=== PATIENT | male | born 1960 | race African-American/Black ===

== ENCOUNTER 2017-02-23 12:03 | Emergency (ER) | payer MEDICARE ==
[~2017-02-23] VITALS: Ht 172.7 cm; Wt 97.1 kg
[~2017-02-23 12:03] MED LIST: ALLO100T PO; AMLO5TAB4 PO; ASPI81TA2 PO; ATOR10TA60 PO; CARV25TA PO; GABA600T2 PO; MYCO250C PO; MYCO500T PO; OMEP40CA5 PO; PROPRANOLOL; TACR5CAP4 PO
[2017-02-23 12:14] VITALS: BP 165/84
[2017-02-23] MEDS ORDERED: METR500T4 PO (12:32)
[2017-02-23] MEDS ORDERED: HYDR-971 PO (12:32)
--- NOTE | 2017-02-23 12:35 | PHYS DOC ---
General Chief Complaint: DIARRHEA Stated Complaint: WANTS TO BE TESTED FOR C DIFF Time Seen by MD: 12:06 Source: patient Exam Limitations: no limitations Problems: History of Present Illness Initial Comments Pt is 56/M to ED requesting C diff test. Pt has h/o C diff in past, states he recently finished levaquin rx and now has diarrhea. States about a week loose watery stools no blood noted, +night chills /sweats, sx are identical to prior C diff. Pt states he wants dx/tx before sx get as severe as his prior infection. He feels he's hydrating adequately, denies travel/bad food exposure/known sick contacts. Timing/Duration: 1 week, constant Severity: mild Modifying Factors: improves with other Associated Symptoms: other Allergies: Coded Allergies: No Known Drug Allergies (Unverified , 04/14/15) Past Medical History Medical History: other (CAD, constipation, DM, HLP, HTN, immunosuppression, renal insufficiency) Surgical History: coronary bypass surgery, other Social History Smoker: non-smoker Alcohol: none Drugs: none Review of Systems Constitutional: see HPI Respiratory: denies cough, denies shortness of breath Cardiovascular: denies chest pain, denies palpitations Gastrointestinal: see HPI Genitourinary: denies dysuria, denies frequency Psychiatric/Neurological: denies headache, denies paresthesia Physical Exam General Appearance: WD/WN, no apparent distress Ear, Nose, Throat: normal ENT inspection Neck: non-tender, supple Respiratory: normal breath sounds, no respiratory distress Gastrointestinal: normal bowel sounds, non tender, soft Back: normal inspection, no CVA tenderness Extremities: non-tender, normal inspection 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 Continue current meds. Rx: metronidazole, norco 5mg #10 Take meds with food. OTC probiotics or cultured yogurt daily. Follow up with your doctor Wednesday 02/28. Return to ED with new or changing symptoms. DEV DELACRUZ DO Feb 23, 2017 12:35
[2017-02-23] MEDS ORDERED: METRONIDAZOLE 500 MG TABLET PO ONE (13:00)
== END 2017-02-23 12:50 | disposition home or self-care (01) ==
LOC: ER 12:03
DX: K52.1 Toxic gastroenteritis and colitis (principal); T36.8X5A Adverse effect of other systemic antibiotics, initial encounter; I25.10 Atherosclerotic heart disease of native coronary artery without angina pectoris; I10 Essential (primary) hypertension; E11.9 Type 2 diabetes mellitus without complications; E78.5 Hyperlipidemia, unspecified; Z95.1 Presence of aortocoronary bypass graft; Y92.89 Other specified places as the place of occurrence of the external cause
CPT/HCPCS: 99283

== ENCOUNTER 2017-06-22 17:10 | Emergency (ER) | payer MEDICARE ==
[~2017-06-22] VITALS: Ht 172.7 cm; Wt 93.0 kg
[~2017-06-22 17:10] MED LIST changes: +ASPI-630 PO; -ASPI81TA2 PO; +HYDR-971 PO; +METR500T8 PO
[2017-06-22] MEDS ORDERED: IV NORMAL SALINE 1,000ML 1,000 ML IV SCH (17:35)
[2017-06-22] MEDS ORDERED: 0.9 % SODIUM CHLORIDE 10 ML DISP.SYRIN. IV PRN (17:45)
--- NOTE | 2017-06-22 17:54 | EKG ---
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
--- NOTE | 2017-06-22 18:02 | PHYS DOC ---
Past History Past Medical History: CAD, Diabetes, High Cholesterol, Heart Disease, Hypertension, Immunosuppression, Other Past Surgical History: Coronary Bypass Surgery, Other Additional Past Surgical Histo: renal transplant, pancreatic transplant Smoking: Non-smoker Alcohol Use: None Drug Use: None Adult General Chief Complaint Chief Complaint: NAUSEA/VOMITING/DIARRHEA HPI HPI Impression is a pleasant 57-year-old male with a history of renal and pancreatic transplant 7 years ago at [facility]. For last 2 weeks he's had this nausea subjective fevers and chills body aches and a rash he feels that he developed on his right lower thigh and leg. 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 He normally gets all his care at . Although he's been febrile he is had no documented fever. Patient has had nausea and nonbilious nonbloody diarrhea nonbloody nonmucoid with no recent antibiotics. He's had no recent relatively country. He denies any chest pain, shortness of breath, headache, focal neurologic deficit or other symptoms. He feels like he has the flu. Review of Systems Review of Systems Constitutional: He complains of generalized fevers and chills. Eyes: Denies change in visual acuity, redness, or eye pain [] HENT: Denies nasal congestion or sore throat [] Respiratory: Denies cough or shortness of breath [] Cardiovascular: No additional information not addressed in HPI [] GI: Denies abdominal pain, he does complain of nausea vomiting and diarrhea nonbloody is not on bilious : Denies dysuria or hematuria [] Musculoskeletal: Denies back pain or joint pain [] Integument: Complains of a skin rash on his right thigh and leg. It was very painful and sensitive beforehand. Neurologic: Denies headache, focal weakness or sensory changes [] Endocrine: Denies polyuria or polydipsia [] Current Medications Current Medications Current Medications Medications (Trade) Dose Ordered Sig/Karl Start Time Stop Time Status Last Admin Dose Admin Sodium Chloride (Normal Saline Flush) 10 ml QSHIFT PRN 06/22/17 17:45 Allergies Allergies Allergies Coded Allergies Type Severity Reaction Last Updated Verified No Known Drug Allergies 06/22/17 No Physical Exam Physical Exam Vital signs recorded on the chart demonstrated hypertension without fever, hypoxia, tachypnea or tachycardia. Constitutional: Well developed, well nourished, no acute distress, non-toxic appearance. [] HENT: Normocephalic, atraumatic, bilateral external ears normal, oropharynx moist, no oral exudates, nose normal. [] Eyes: PERRLA, EOMI, conjunctiva normal, no discharge. [] Neck: Normal range of motion, no tenderness, supple, no stridor. [] Cardiovascular:Heart rate regular rhythm, no murmur [] Lungs & Thorax: Bilateral breath sounds clear to auscultation [] Abdomen: Bowel sounds normal, soft, no tenderness, no masses, no pulsatile masses. [] Skin: Warm, dry, slight well-healed rash on his right thigh with no obvious signs of abscess or cellulitis. Back: No tenderness, no CVA tenderness. [] Extremities: No tenderness, no cyanosis, no clubbing, ROM intact, no edema. [] Neurologic: Alert and oriented X 3, normal motor function, normal sensory function, no focal deficits noted. [] Psychologic: Affect normal, judgement normal, mood normal. [] Current Patient Data Vital Signs Vital Signs Date Time Temp Pulse Resp B/P (MAP) Pulse Ox O2 Delivery O2 Flow Rate FiO2 06/22/17 17:42 98.2 73 18 98 Room Air EKG EKG [] Radiology/Procedures Radiology/Procedures [] Course & Med Decision Making Course & Med Decision Making Pertinent Labs and Imaging studies reviewed. (See chart for details) reviewed nursing notes, vital signs been recorded and patient's complaint at this point patient is immunocompromised and will require further workup and thorough evaluation by the oncoming physician we discussed the patient's complaints and plan for action at this point in time patient will likely need transfer to necessary if his has taken any injury. [] Dragon Disclaimer Dragon Disclaimer This chart was dictated in whole or in part using Voice Recognition software in a busy, high-work load, and often noisy Emergency Department environment. It may contain unintended and wholly unrecognized errors or omissions. Departure Departure: Referrals: SATURNINO MAXWELL (PCP) THUAN DENG MD Jun 22, 2017 18:02
[2017-06-22 18:45] LABS: BASO # 0.1 x10^3/uL (0.0-0.2); BASO % 1 % (0-3); EOS # 0.4 x10^3/uL (0.0-0.7); EOS % 7 % (0-3); HEMATOCRIT 43.7 % (39.0-53.0); HEMOGLOBIN 13.9 g/dL (13.0-17.5); LYMPH # 1.5 x10^3/uL (1.0-4.8); LYMPH % 27 % (24-48); MEAN CORPUSCULAR HEMOGLOBIN 25 pg (25-35); MEAN CORPUSCULAR HGB CONC 32 g/dL (31-37); MEAN CORPUSCULAR VOLUME 79 fL (79-100); MONO # 0.8 x10^3/uL (0.0-1.1); MONO % 15 % (0-9); NEUT # 2.7 x10^3uL (1.8-7.7); NEUT % 49 % (31-73); PLATELET COUNT 193 x10^3/uL (140-400); RED BLOOD COUNT 5.52 x10^6/uL (4.30-5.70); RED CELL DISTRIBUTION WIDTH 18.7 % (11.5-14.5); WHITE BLOOD COUNT 5.4 x10^3/uL (4.0-11.0)
[2017-06-22 19:02] LABS: ALBUMIN 4.2 g/dL (3.4-5.0); ALBUMIN/GLOBULIN RATIO 1.1 (1.0-1.7); CALCIUM 8.8 mg/dL (8.5-10.1); CREATININE 1.2 mg/dL (0.7-1.3); MAGNESIUM 1.7 mg/dL (1.8-2.4); TOTAL BILIRUBIN 0.6 mg/dL (0.2-1.0); TOTAL PROTEIN 7.9 g/dL (6.4-8.2)
[2017-06-22 19:03] LABS: POTASSIUM 4.5 mmol/L (3.5-5.1)
[2017-06-22] MEDS ORDERED: ONDANSETRON PF 4 MG/2 ML VIAL. IV ONE (19:15)
[2017-06-22 19:33] LABS: BACTERIA,URINE 0 /HPF (0-FEW); BILIRUBIN,URINE NEG (NEG); CLARITY,URINE CLEAR; COLOR,URINE YELLOW; GLUCOSE,URINE NEG (NEG); NITRITE,URINE NEG (NEG); RBC,URINE OCC /HPF (0-2); SQUAMOUS EPITHELIAL CELL,UR OCC /LPF; UROBILINOGEN,URINE 0.2 mg/dL (0.2 mg/dL)
[2017-06-22] MEDS ORDERED: IV NORMAL SALINE 50ML 50 ML ONE (19:35)
[2017-06-22] MEDS ORDERED: cefTRIAXone SODIUM 1 GM VIAL IV ONE (19:35)
[2017-06-22] MEDS ORDERED: AMOX500C PO (19:57)
--- NOTE | 2017-06-22 19:57 | PHYS DOC ---
Departure Departure: Impression: Primary Impression: Upper respiratory infection Disposition: HOME, SELF-CARE Condition: IMPROVED Referrals: SATURNINO MAXWELL (PCP) Patient Instructions: Viral Syndrome Additional Instructions: Your evaluated today in the ER for what appears to be a viral syndrome. No serious cause of your symptoms of been discovered. He'll be sent home with a prescription for antibiotics. Please complete all your antibiotics and follow up with your family doctor or transplant physician this week. Your creatinine today in the ER was 1.2. This appears to be where her baseline creatinine has been. Of note, your CPK level was elevated today in the ER. It appears to only speak slightly elevated. This might be something he wants to discuss with your doctor. This is most likely related to a side effect from one of your medications however it would be best that your doctor be made aware of this next time he see them. Scripts Amoxicillin (AMOXICILLIN) 500 Mg Capsule 1 CAP PO TID, #30 CAP Prov: SARA NAVA MD 06/22/17 Assessment Status/Problems: Doing well Additional comments: 57-year-old gentleman with multiple medical problems who is status post transplant and is followed by [facility] transplant team who presents to the ER today with complaint of feeling like he's had the flu for over a week now. Patient reports that whenever he has he symptoms and they do not resolve in the room he usually comes to the doctor the ER he get a shot of antibiotics he gets home with antibiotics and usually feels better after several days. Patient's ER workup so far has been unremarkable. Patient's labs were within normal limits for the patient. Patient's sodium is slightly low at 128 however patient reports that he is always hyponatremic. Patient's white count is normal. Patient 's infectious evaluation the ER is been unremarkable. Patient's right thigh reveals no evidence of acute cellulitis. Patient's creatinine is at baseline for patient. Given the patient's history of a transplant I think he'll be reasonable to go ahead given his symptoms to give him a dose of Rocephin IV and sent him home with amoxicillin and have him follow-up with his primary care physician/transplant physician this week. Patient feels well. Plan is been discussed with the patient he feels comfortable with the plan to be discharged home. SARA NAVA MD Jun 22, 2017 19:57
[2017-06-22 20:04] VITALS: BP 134/79
[2017-06-22 21:31] LABS: ANISOCYTOSIS SLIGHT; BURR CELLS FEW; OVALOCYTES FEW; PLT ESTIMATE ADEQUATE (ADEQUATE)
--- NOTE | 2017-06-23 07:38 | RAD ---
Chest radiograph 06/22/2017 at 1741 hours Indication: Fever and rash Comparison: Chest radiograph 11/09/2015 Technique: PA and lateral views of the chest are provided. Findings: Median sternotomy changes are present. Cardiomediastinal silhouette is similar in appearance. Trace left pleural effusion. No pulmonary vascular congestion or pneumothorax. Minimal left basilar subsegmental atelectasis. Impression: Trace left pleural effusion with left basilar subsegmental atelectasis.
== END 2017-06-22 20:12 | disposition home or self-care (01) ==
LOC: ER 17:10
DX: J06.9 Acute upper respiratory infection, unspecified (principal); R21 Rash and other nonspecific skin eruption; I25.810 Atherosclerosis of coronary artery bypass graft(s) without angina pectoris; I11.9 Hypertensive heart disease without heart failure; E11.9 Type 2 diabetes mellitus without complications; E78.00 Pure hypercholesterolemia, unspecified
CPT/HCPCS: 36415; 71020; 80053; 81001; 82553; 83605; 83735; 84443; 84484; 85025; 87040; 87086; 93005; 96361; 96365; 96375; 99285; J0696; J2405; J7030

== ENCOUNTER 2017-09-02 17:34 | Observation (INO) | payer MEDICARE ==
[~2017-09-02] VITALS: Ht 172.7 cm; Wt 92.6 kg
[~2017-09-02 17:34] MED LIST changes: +AMOX500C PO
[2017-09-02] MEDS ORDERED: IV NORMAL SALINE 1,000ML 1,000 ML IV SCH (18:23)
[2017-09-02] MEDS ORDERED: 0.9 % SODIUM CHLORIDE 10 ML DISP.SYRIN. IV PRN (18:30)
[2017-09-02] MEDS ORDERED: ONDANSETRON PF 4 MG/2 ML VIAL. IV ONE (18:45)
--- NOTE | 2017-09-02 18:50 | PHYS DOC ---
Past History Past Medical History: Diabetes, Hypertension Past Surgical History: Other Additional Past Surgical Histo: renal transplant, pancreatic transplant Smoking: Non-smoker Alcohol Use: None Drug Use: None Adult General Chief Complaint Chief Complaint: NAUSEA/VOMITING/DIARRHEA [facility] HPI Patient is a pleasant 57-year-old male with a history of heart disease, end- stage renal disease requiring transplant, hyperlipidemia, pancreatitis, diabetes , who presents with 4 days of nausea vomiting diarrhea. And because of his renal transplant he is concerned his renal transplant is failing because he is not minimally urinate for last 8 hours. Patient has some crampy abdominal pain that began 4 days ago ascribes dull achy worse with vomiting with nonbilious nonbloody emesis. He generally feels episodes a day and he cannot keep any fluids down. He has urine output although has decreased significantly. Patient has had diarrhea a few loose stools today with no blood no mucus. He admits no sick contacts. Patient admits to no fevers, cough but has had a runny nose without your pain or drainage or other URI symptoms. Patient admits he's had no pain with urination, hematuria or other symptoms. Patient denies any back pain lightheaded dizziness or significant chest pain. Review of Systems Review of Systems Constitutional: Denies fever or chills [] Eyes: Denies change in visual acuity, redness, or eye pain [] HENT: He has had some nasal congestion without sore throat. Respiratory: Denies cough or shortness of breath [] Cardiovascular: No additional information not addressed in HPI [] GI: Patient is having diffuse crampy abdominal pain not specifically over the kidney transplant site but nausea with vomiting diarrhea without blood.[] : Denies dysuria or hematuria he has had slight decreased urinary output. Musculoskeletal: Denies back pain or joint pain [] Integument: Denies rash or skin lesions [] Neurologic: Denies headache, focal weakness or sensory changes [] Endocrine: Denies polyuria or polydipsia [] Current Medications Current Medications Current Medications Medications (Trade) Dose Ordered Sig/Karl Start Time Stop Time Status Last Admin Dose Admin Ondansetron HCl (Zofran) 4 mg 1X ONCE 09/02/17 18:45 09/02/17 18:46 Sodium Chloride (Normal Saline Flush) 10 ml QSHIFT PRN 09/02/17 18:30 Allergies Allergies Allergies Coded Allergies Type Severity Reaction Last Updated Verified No Known Drug Allergies 06/22/17 No Physical Exam Physical Exam Vital signs recorded on chart within normal limits. Constitutional: Well developed, well nourished, no acute distress, non-toxic appearance patient's clothes are somewhat soiled with foodstuffs on his abdomen. [] HENT: Normocephalic, atraumatic, bilateral external ears normal, oropharynx moist, no oral exudates, nose normal. [] Eyes: PERRLA, EOMI, conjunctiva normal, no discharge. [] Neck: Normal range of motion, no tenderness, supple, no stridor. [] Cardiovascular:Heart rate regular rhythm, no murmur [] Lungs & Thorax: Bilateral breath sounds clear to auscultation [] Abdomen: Patient has some increased hyperactive bowel sounds mild abdominal distention but no focal tenderness to palpation over his kidney. He has no Guajardo's or McBurney's point tenderness to palpation no guarding rebound or organomegaly.. [] Skin: Warm, dry, no erythema, no rash. [] Back: No tenderness, no CVA tenderness. [] Extremities: No tenderness, no cyanosis, no clubbing, ROM intact, no edema. [] Neurologic: Alert and oriented X 3, normal motor function, normal sensory function, no focal deficits noted. [] Psychologic: Affect normal, judgement normal, mood normal. [] Current Patient Data Vital Signs Vital Signs Date Time Temp Pulse Resp B/P (MAP) Pulse Ox O2 Delivery O2 Flow Rate FiO2 09/02/17 17:49 97.6 79 18 97 Room Air EKG EKG [] Radiology/Procedures Radiology/Procedures [] [address] [place] [id number] IMAGING REPORT Signed PATIENT: DANNA ZHONG ACCOUNT: [id number] : 1960 LOCATION: ER AGE: 57 SEX: M EXAM STATUS: REG ER ORD. PHYSICIAN: THUAN DENG MD REASON: ab pain with n/v PROCEDURE: CT ABDOMEN PELVIS WO CONTRAST CT scan of the abdomen and pelvis without contrast 09/02/2017 CLINICAL HISTORY: Abdominal pain with nausea and vomiting for one week. TECHNIQUE: Unenhanced, contiguous, 3 mm axial sections were obtained through the abdomen and pelvis after the oral administration of contrast only. One or more of the following individualized dose reduction techniques were utilized for this study: 1. Automated exposure control. 2. Adjustment of the mA and/or kV according to patient size. 3. Use of iterative reconstruction technique. FINDINGS: Comparison study is dated 09/04/2014. Images through the lung bases demonstrate minimal dependent subsegmental atelectasis bilaterally. The liver, spleen, and adrenal glands are within normal limits. Atrophy of both kidneys is seen. Atrophy of the pancreas is noted. No acute focal abnormality is seen. Moderate atherosclerotic calcification of the abdominal aorta is seen. The abdominal aorta tapers normally. The gallbladder slightly contracted. No free fluid or free air is seen within the abdomen. Postsurgical changes are seen throughout the bowel. There is no evidence of bowel obstruction. A renal transplant is seen within the right lower quadrant of the abdomen/pelvis. No focal abnormality is seen. Images through the pelvis demonstrate the urinary bladder distended with urine. No free fluid is seen. Minimal S-shaped curvature of the thoracolumbar spine is seen. IMPRESSION: No acute abnormality is seen. Electronically signed by: Damaso Tarango MD (09/02/2017 8:22 PM) [facility] DICTATED AND SIGNED BY: DAMASO TARANGO MD DATE: 09/02/172014 CC: THUAN DENG MD; SATURNINO MAXWELL Course & Med Decision Making Course & Med Decision Making Pertinent Labs and Imaging studies reviewed. (See chart for details) he presents with abdominal pain, nausea vomiting diarrhea that began 4 days prior to arrival. He is mainly concerned that his kidney function may be decreasing with his inability tolerate food and fluids. On initial exam his abdomen seems soft specifically there is no tenderness over the implant site of the kidney. Patient wanted a CAT scan done without contrast as well as fluids antiemetics and pain medications if necessary. Time is now 8:00 patient is resting quietly although he still in some discomfort. Laboratory work is still pending at this time what is return CBC is normal\ Time is now 8:[address] report abdomen pelvis turned with no signs of intra-abdominal catastrophe, small bowel obstruction or renal failure as her is no inflammation around the implant site. This patient still feels uncomfortable with some mild nausea I'm is now 9 PM patient is feeling comfortable restarting some mild abdominal pain with nausea although he's not had any vomiting here diarrhea patient been invited to stay. His BUN/creatinine are normal. His creatinine is 1.1. Given that fact he is not having acute rejection of his renal transplant I offered admission to them for fluid management and pain medications and he said he would prefer that as opposed being at home by himself. Video Production Engineer note: Dr. Aristeo HOOKER Video Production Engineer called at of the service internal medicine service contracts attorney 9:01 PM Consult called back at 9:01 PM Discussed the case I presented and they agreed with admission. Time of acceptance 9:01 PM []Impression, abdominal pain unclear etiology, nausea, vomiting, diarrhea mild hyponatremia Dragon Disclaimer Dragon Disclaimer This chart was dictated in whole or in part using Voice Recognition software in a busy, high-work load, and often noisy Emergency Department environment. It may contain unintended and wholly unrecognized errors or omissions. Departure Departure: Impression: Primary Impression: Nausea and vomiting Additional Impressions: Diarrhea Abdominal pain Hyponatremia Disposition: ADMITTED INPATIENT Admitting Physician: Ravi Henderson Condition: GUARDED Referrals: SATURNINO MAXWELL (PCP) Problem Qualifiers THUAN DENG MD Sep 02, 2017 18:50
[2017-09-02 20:13] LABS: BASO # 0.1 x10^3/uL (0.0-0.2); BASO % 1 % (0-3); EOS # 0.6 x10^3/uL (0.0-0.7); EOS % 10 % (0-3); HEMATOCRIT 41.5 % (39.0-53.0); HEMOGLOBIN 13.7 g/dL (13.0-17.5); LYMPH # 1.1 x10^3/uL (1.0-4.8); LYMPH % 19 % (24-48); MEAN CORPUSCULAR HEMOGLOBIN 26 pg (25-35); MEAN CORPUSCULAR HGB CONC 33 g/dL (31-37); MEAN CORPUSCULAR VOLUME 80 fL (79-100); MONO # 0.9 x10^3/uL (0.0-1.1); MONO % 15 % (0-9); NEUT # 3.3 x10^3uL (1.8-7.7); NEUT % 56 % (31-73); PLATELET COUNT 180 x10^3/uL (140-400); RED BLOOD COUNT 5.22 x10^6/uL (4.30-5.70); RED CELL DISTRIBUTION WIDTH 16.9 % (11.5-14.5); WHITE BLOOD COUNT 5.9 x10^3/uL (4.0-11.0)
--- NOTE | 2017-09-02 20:25 | RAD ---
CT scan of the abdomen and pelvis without contrast 09/02/2017 CLINICAL HISTORY: Abdominal pain with nausea and vomiting for one week. TECHNIQUE: Unenhanced, contiguous, 3 mm axial sections were obtained through the abdomen and pelvis after the oral administration of contrast only. One or more of the following individualized dose reduction techniques were utilized for this study: 1. Automated exposure control. 2. Adjustment of the mA and/or kV according to patient size. 3. Use of iterative reconstruction technique. FINDINGS: Comparison study is dated 09/04/2014. Images through the lung bases demonstrate minimal dependent subsegmental atelectasis bilaterally. The liver, spleen, and adrenal glands are within normal limits. Atrophy of both kidneys is seen. Atrophy of the pancreas is noted. No acute focal abnormality is seen. Moderate atherosclerotic calcification of the abdominal aorta is seen. The abdominal aorta tapers normally. The gallbladder slightly contracted. No free fluid or free air is seen within the abdomen. Postsurgical changes are seen throughout the bowel. There is no evidence of bowel obstruction. A renal transplant is seen within the right lower quadrant of the abdomen/pelvis. No focal abnormality is seen. Images through the pelvis demonstrate the urinary bladder distended with urine. No free fluid is seen. Minimal S-shaped curvature of the thoracolumbar spine is seen. IMPRESSION: No acute abnormality is seen. Electronically signed by: Damaso Tarango MD (09/02/2017 8:22 PM) [facility]
[2017-09-02 20:47] LABS: ALBUMIN 3.8 g/dL (3.4-5.0); ALBUMIN/GLOBULIN RATIO 1.1 (1.0-1.7); CALCIUM 8.7 mg/dL (8.5-10.1); CREATININE 1.1 mg/dL (0.7-1.3); GFR 82.9; POTASSIUM 4.2 mmol/L (3.5-5.1); TOTAL PROTEIN 7.2 g/dL (6.4-8.2)
[2017-09-02 21:18] LABS: BILIRUBIN,URINE NEG (NEG); CLARITY,URINE HAZY; COLOR,URINE YELLOW; GLUCOSE,URINE NEG (NEG)
[2017-09-02 21:19] LABS: BACTERIA,URINE 0 /HPF (0-FEW); NITRITE,URINE NEG (NEG); SQUAMOUS EPITHELIAL CELL,UR FEW /LPF; UROBILINOGEN,URINE 0.2 mg/dL (0.2 mg/dL)
[2017-09-02 21:20] LABS: SPERM,URINE PRESENT /HPF
[2017-09-02] MEDS ORDERED: ONDANSETRON PF 4 MG/2 ML VIAL. IV PRN (21:30)
[2017-09-02] MEDS ORDERED: ACETAMINOPHEN 325 MG TABLET PO PRN (21:30)
[2017-09-02] MEDS: MORPHINE SULFATE 4 MG/ML DISP.SYRIN. IV PRN ×2 (21:31→23:55)
[2017-09-02 21:47] VITALS: BP 145/82
[2017-09-02] MEDS ORDERED: PREG75CA PO (22:17)
[2017-09-02] MEDS ORDERED: CLON0.5T3 PO (22:17)
[2017-09-02] MEDS ORDERED: TRAZ50TA15 PO (22:19)
[2017-09-02] MEDS ORDERED: VITA100C8 PO (22:20)
[2017-09-02] MEDS: IV NORMAL SALINE 1,000ML 1,000 ML IV SCH (23:09)
[2017-09-03] MEDS: IV NORMAL SALINE 1,000ML 1,000 ML IV SCH (06:15)
[2017-09-03 06:31] VITALS: BP 132/79
[2017-09-03] MEDS: MORPHINE SULFATE 4 MG/ML DISP.SYRIN. IV PRN ×2 (08:04→11:40)
[2017-09-03] MEDS ORDERED: TACROLIMUS 0.5 MG CAPSULE PO SCH (09:00)
[2017-09-03 10:52] VITALS: BP 124/77
[2017-09-03] MEDS ORDERED: TACROLIMUS 0.5 MG CAPSULE PO ONE (11:00)
[2017-09-03] MEDS ORDERED: MYCOPHENOLATE MOFETIL 500 MG TABLET. PO SCH (11:00)
--- NOTE | 2017-09-03 17:25 | SSS ---
ADMIT DATE: 09/03/2017 HISTORY OF PRESENT ILLNESS: This is a 57-year-old -[place] male patient who presented with 4 days of nausea, vomiting and diarrhea. The patient is known to have type 1 diabetes with end-stage renal failure, status post simultaneous kidney and pancreatic transplant. He was concerned that his transplant is failing as he had been not making any urine for the last 8 hours and he also complained of some crampy abdominal pain that began 4 days ago, described as dull, achy, worse with vomiting with nonbilious, nonbloody emesis. He apparently had multiple episodes of nausea, vomiting and diarrhea. He cannot keep any fluid down. His urine output has decreased significantly. His stool showed no blood or mucus. He admits no sick contacts. The patient admits no fever, cough, but has a runny nose without any pain or drainage and no other upper respiratory tract symptoms. Denied any dysuria, frequency or hematuria. He did complain of back pain, lightheadedness and dizziness. He was evaluated in the Emergency Room, was found to be mildly hyponatremic. However, his lab work is remarkably within acceptable range. He was treated with IV fluid and has been asymptomatic since this morning. He was able to tolerate his food; he has had no further episodes of nausea, vomiting, no diarrhea. He did have some mild crampy abdominal pain and when I saw him, he basically wanted to go home as he is back to his normal state of health. PAST MEDICAL HISTORY: Significant for type 1 diabetes mellitus for 30 years. He has end-stage renal failure and was on hemodialysis through a right arm arteriovenous fistula for 1 year; hypertension, coronary artery disease status post coronary artery bypass graft surgery on 04/03/2013. 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 He has diabetic neuropathy. PAST SURGICAL HISTORY: Significant for arteriovenous fistula creation in his left arm, coronary artery bypass graft, simultaneous kidney and pancreatic transplant done in 07/2011. ALLERGIES: He has no known drug allergies. MEDICATIONS: He is currently on the following medications: Allopurinol 150 mg once a day, aspirin 81 mg once a day, carvedilol 25 mg twice a day, clonazepam 0.25 mg twice a day, hydrocodone/APAP 5/325 one tablet every 6 hours, mycophenolate for CellCept 500 mg p.o. b.i.d., omeprazole 40 mg twice a day, pregabalin 75 mg daily, tacrolimus 1.5 mg twice a day, trazodone 50 mg at bedtime and vitamin E 100 units p.o. daily. FAMILY HISTORY: He has 2 brothers and 2 sisters. His father at the age of 89 because of colon cancer. Mother at the age of 84 because of esophageal cancer. SOCIAL HISTORY: He is single, never , has no children. He is an ex-smoker, quit in 2012. He does not drink alcohol or use any recreational drugs. REVIEW OF SYSTEMS: The patient is blind in his left eye. Denied any earache, tinnitus or sensorineural deafness. Denied any nosebleeds, stuffy nose or postnasal drip. Denied any sore throat, sore tongue, toothache, hoarseness of voice or difficulty swallowing. Did complain of recurrent bouts of nausea, vomiting, but no hematemesis. He has also diarrhea, but no hematochezia or melena. Denied any dysuria, frequency or hematuria. Denied any chest pain, shortness of breath, orthopnea, or paroxysmal nocturnal dyspnea. PHYSICAL EXAMINATION: GENERAL: On arrival, he looked well and was clearly in no apparent respiratory distress. VITAL SIGNS: His heart rate was 79, blood pressure 138/76, temperature was 97.6, respiratory rate was 18, and oxygen saturation was 97%. HEAD, EYES, EARS, NOSE AND THROAT: Showed normocephalic, atraumatic. NECK: Supple. HEART: Showed normal first and second heart sounds with no gallop, rub or murmur. CHEST: Clear to auscultation. No crepitation or rhonchi. ABDOMEN: Distended, soft, nontender. No guarding or rigidity. No organomegaly. All hernial orifices are intact. Bowel sounds normal. NEUROLOGIC: He was blind in his left eye; otherwise, all cranial nerves are intact. EXTREMITIES: He moves extremities without difficulty. He ambulates without assistance or assistive devices. LABORATORY DATA: Showed a white cell count of 5900, hemoglobin 13.7, hematocrit 41.5, MCV 80 and platelet count of 180,000 with normal manual differential. His chemistry showed a serum sodium of 126, potassium 4.2, chloride 93, bicarbonate 22, anion gap of 11, BUN 16, creatinine 1.1, estimated GFR was 83 mL per minute, his glucose was 85, calcium was 8.7. Total bilirubin, AST, ALT, alkaline phosphatase were normal. CK was high at 461; however, his troponin was less than 0.017. His total protein was 7.2, albumin 3.8 and lipase was 128. Urinalysis was essentially unremarkable. The urine was negative for protein, glucose, ketones, blood, nitrite and leukocyte esterase. There were 1-2 RBCs, 5-10 WBCs, no bacteria. IMAGING: He underwent a CT scan of the chest, abdomen and pelvis without contrast, which showed that the lung bases demonstrate minimal dependent subsegmental atelectasis bilaterally. The liver, spleen and adrenal glands are within normal limits, atrophy with kidneys are seen, atrophied pancreas is noted. No acute focal abnormalities seen. He has moderate atherosclerotic calcification of the abdominal aorta is seen. The abdominal aorta tapers normally. The gallbladder is slightly contracted. No free fluid or free air is seen within the abdomen, post-surgical changes are seen throughout the bowel. There is no evidence of bowel obstruction, renal transplant is seen within the right lower quadrant, with the abdomen and pelvis no focal abnormality is seen. Image through pelvis demonstrates the urinary bladder distended with urine. No free fluid is seen. Minimally S-shaped curvature of the thoracolumbar spine is seen. ASSESSMENT AND PLAN: The patient was admitted, was continued on his medication, continued on IV fluid, he did very well. I offered to repeat his lab work, but he stated that he has chronic hyponatremia, it has been investigated extensively, he feels that he is feeling fine and would like to go home and was discharged to continue with all of his medications. FINAL DISCHARGE DIAGNOSES: 1. Acute gastroenteritis, resolved, status post simultaneous pancreas and kidney transplant. 2. Type 1 diabetes. 3. End-stage renal disease 4. Hypertension. 5. Coronary artery disease, status post coronary artery bypass graft. 6. Diabetic retinopathy, detached retina, for which he is blind in his left eye. 7. Diabetic neuropathy. SUMMER MILLER MD DR: TAYLOR/chucky JOB#: [id number] / [id number]
[2017-09-03] MEDS ORDERED: TACROLIMUS 1 MG CAPSULE PO SCH (21:00)
[2017-09-04] MEDS ORDERED: TACROLIMUS 0.5 MG CAPSULE PO SCH (09:00)
[2017-09-04] MEDS ORDERED: TACROLIMUS 1 MG CAPSULE PO SCH (09:00)
== END 2017-09-03 16:30 | disposition home or self-care (01) ==
LOC: ER 17:34 → 1 SOUTH 20:58
PROVIDERS: ADMIT Internal Medicine; ATTEND Internal Medicine
DX: K52.9 Noninfective gastroenteritis and colitis, unspecified (principal); I12.0 Hypertensive chronic kidney disease with stage 5 chronic kidney disease or end stage renal disease; N18.6 End stage renal disease; E10.22 Type 1 diabetes mellitus with diabetic chronic kidney disease; I25.10 Atherosclerotic heart disease of native coronary artery without angina pectoris; E10.319 Type 1 diabetes mellitus with unspecified diabetic retinopathy without macular edema; E78.5 Hyperlipidemia, unspecified; E87.1 Hypo-osmolality and hyponatremia; H54.62 Unqualified visual loss, left eye, normal vision right eye; Z79.4 Long term (current) use of insulin; Z80.0 Family history of malignant neoplasm of digestive organs; Z87.891 Personal history of nicotine dependence; Z95.1 Presence of aortocoronary bypass graft; Z94.83 Pancreas transplant status
CPT/HCPCS: 36415; 74176; 80053; 81001; 82553; 83690; 84484; 85025; 87086; 96361; 96374; 96375; 96376; 99285; G0378; J2270; J2405; J7507; J7517; G0379; J7030

== ENCOUNTER 2017-09-21 16:03 | Observation (INO) | payer MEDICARE ==
[~2017-09-21] VITALS: Ht 172.7 cm; Wt 93.2 kg
[~2017-09-21 16:03] MED LIST changes: +CLON0.5T3 PO; +PREG75CA PO; +TRAZ50TA15 PO; +VITA100C8 PO
--- NOTE | 2017-09-21 17:33 | PHYS DOC ---
Past History Past Medical History: Diabetes, Hypertension Past Surgical History: Other Additional Past Surgical Histo: renal transplant, pancreatic transplant Smoking: Non-smoker Alcohol Use: None Drug Use: None Adult General Chief Complaint Chief Complaint: UPPER EXTREMITY SWELLING HPI HPI Patient is a 57 year old M who presents with right upper extremity swelling. His swelling began 2 days ago and is associated with [id number] pain. He has a fistula which is not been in use since 2010. He denies any other associated symptoms. He feels that his pain is worse with movement and palpation. His pain is better with positioning and rest Review of Systems Review of Systems Constitutional: Denies fever or chills [] Eyes: Denies change in visual acuity, redness, or eye pain [] HENT: Denies nasal congestion or sore throat [] Respiratory: Denies cough or shortness of breath [] Cardiovascular: No additional information not addressed in HPI [] GI: Denies abdominal pain, nausea, vomiting, bloody stools or diarrhea [] : Denies dysuria or hematuria [] Musculoskeletal: Denies back pain or joint pain [] Integument: Denies rash or skin lesions [] Neurologic: Denies headache, focal weakness or sensory changes [] Endocrine: Denies polyuria or polydipsia [] All other systems were reviewed and found to be within normal limits, except as documented in this note. Family History Family History Noncontributory Current Medications Current Medications Medications reviewed Allergies Allergies Allergies Coded Allergies Type Severity Reaction Last Updated Verified No Known Drug Allergies 06/22/17 No Physical Exam Physical Exam Constitutional: Well developed, well nourished, no acute distress, non-toxic appearance. [] HENT: Normocephalic, atraumatic, bilateral external ears normal, oropharynx moist, no oral exudates, nose normal. [] Eyes: EOMI, conjunctiva normal, no discharge. [] Neck: Normal range of motion, no tenderness, supple, no stridor. [] Cardiovascular:Heart rate regular rhythm, no murmur [] Lungs & Thorax: Bilateral breath sounds clear to auscultation [] Abdomen: Bowel sounds normal, soft, no tenderness, no masses, no pulsatile masses. [] Skin: Warm, dry, no erythema, no rash. [] Back: No tenderness, no CVA tenderness. [] Extremities: Right upper extremity swelling and pain Neurologic: Alert and oriented X 3, normal motor function, normal sensory function, no focal deficits noted. [] Psychologic: Affect normal, judgement normal, mood normal. [] EKG EKG [] Radiology/Procedures Radiology/Procedures [] Course & Med Decision Making Course & Med Decision Making Pertinent Labs and Imaging studies reviewed. (See chart for details) Care was transferred to Dr. Acosta at 1909 Drag Disclaimer Dragon Disclaimer This electronic medical record was generated, in whole or in part, using a voice recognition dictation system. Departure Departure: Impression: Primary Impression: Upper leg DVT (deep venous thromboembolism), acute Disposition: ADMITTED INPATIENT Condition: STABLE Referrals: SATURNINO MAXWELL (PCP) EYAD ROJAS MD Sep 21, 2017 17:33
--- NOTE | 2017-09-21 17:44 | RAD ---
Right upper extremity venous Doppler dated 09/21/2017. No comparison available. Clinical indication: Right arm swelling. FINDINGS: Grayscale, color-flow and spectral waveform analysis performed to include the deep venous system of right upper extremity. There is a small nonocclusive filling defect within the proximal subclavian vein. The deep veins are otherwise patent. There is a patent arteriovenous fistula. IMPRESSION: 1. Short segment nonocclusive thrombus within the proximal subclavian vein. Otherwise no evidence of DVT. 2. Patent AV fistula. Electronically signed by: Sebastien Mccauley MD (09/21/2017 5:41 PM) [facility]
[2017-09-21 20:10] LABS: BASO % 1 % (0-3); EOS # 0.4 x10^3/uL (0.0-0.7); EOS % 8 % (0-3); HEMATOCRIT 41.9 % (39.0-53.0); HEMOGLOBIN 13.6 g/dL (13.0-17.5); LYMPH # 1.1 x10^3/uL (1.0-4.8); LYMPH % 22 % (24-48); MEAN CORPUSCULAR HEMOGLOBIN 27 pg (25-35); MEAN CORPUSCULAR HGB CONC 33 g/dL (31-37); MEAN CORPUSCULAR VOLUME 82 fL (79-100); MONO # 0.7 x10^3/uL (0.0-1.1); MONO % 14 % (0-9); NEUT # 2.8 x10^3uL (1.8-7.7); NEUT % 56 % (31-73); PLATELET COUNT 199 x10^3/uL (140-400); RED BLOOD COUNT 5.09 x10^6/uL (4.30-5.70); RED CELL DISTRIBUTION WIDTH 17.5 % (11.5-14.5); WHITE BLOOD COUNT 4.9 x10^3/uL (4.0-11.0)
[2017-09-21 20:13] LABS: CALCIUM 9.5 mg/dL (8.5-10.1); CREATININE 1.3 mg/dL (0.7-1.3); GFR 68.4; POTASSIUM 4.7 mmol/L (3.5-5.1)
[2017-09-21] MEDS ORDERED: ENOXAPARIN ** NOTE DOSE ** SYRINGE SQ ONE (20:30)
[2017-09-21] MEDS ORDERED: ONDANSETRON PF 4 MG/2 ML VIAL. IV PRN (20:30)
[2017-09-21] MEDS ORDERED: ACETAMINOPHEN 325 MG TABLET PO PRN (20:30)
[2017-09-21 21:51] VITALS: BP 162/81
[2017-09-21 21:53] VITALS: BP 162/81
[2017-09-21] MEDS ORDERED: traZODone 50 MG TABLET. PO PRN (22:30)
[2017-09-21] MEDS ORDERED: PREG75CA PO (22:49)
[2017-09-21] MEDS ORDERED: clonazePAM 0.5 MG TABLET PO PRN (23:00)
[2017-09-21] MEDS: PANTOPRAZOLE 40 MG TABLET. PO SCH (23:51)
[2017-09-21] MEDS: CARVEDILOL 12.5 MG TABLET PO SCH (23:51)
[2017-09-21] MEDS: PREGABALIN 75 MG CAPSULE PO SCH (23:51)
[2017-09-22] MEDS: MORPHINE SULFATE 2 MG/ML DISP.SYRIN. IV PRN ×2 (00:03→05:48)
[2017-09-22] MEDS: MYCOPHENOLATE MOFETIL 500 MG TABLET. PO SCH ×2 (00:25→09:00)
[2017-09-22] MEDS: TACROLIMUS 0.5 MG CAPSULE PO SCH ×2 (00:25→09:00)
[2017-09-22 01:45] VITALS: BP_SYST 121; BP_SYST 146; BP_DIAS 62; BP_DIAS 82
[2017-09-22] MEDS ORDERED: diphenhydrAMINE HCL 25 MG CAPSULE PO PRN (02:00)
[2017-09-22 06:32] LABS: BASO % 1 % (0-3); EOS # 0.4 x10^3/uL (0.0-0.7); EOS % 9 % (0-3); HEMATOCRIT 38.1 % (39.0-53.0); HEMOGLOBIN 12.6 g/dL (13.0-17.5); LYMPH # 1.2 x10^3/uL (1.0-4.8); LYMPH % 26 % (24-48); MEAN CORPUSCULAR HEMOGLOBIN 27 pg (25-35); MEAN CORPUSCULAR HGB CONC 33 g/dL (31-37); MEAN CORPUSCULAR VOLUME 82 fL (79-100); MONO # 0.7 x10^3/uL (0.0-1.1); MONO % 16 % (0-9); NEUT # 2.1 x10^3uL (1.8-7.7); NEUT % 48 % (31-73); PLATELET COUNT 163 x10^3/uL (140-400); RED BLOOD COUNT 4.65 x10^6/uL (4.30-5.70); RED CELL DISTRIBUTION WIDTH 17.2 % (11.5-14.5); WHITE BLOOD COUNT 4.4 x10^3/uL (4.0-11.0)
[2017-09-22 06:47] LABS: ALBUMIN 3.1 g/dL (3.4-5.0); ALBUMIN/GLOBULIN RATIO 0.9 (1.0-1.7); CALCIUM 8.9 mg/dL (8.5-10.1); CREATININE 1.2 mg/dL (0.7-1.3); MAGNESIUM 1.5 mg/dL (1.8-2.4); POTASSIUM 4.2 mmol/L (3.5-5.1); TOTAL BILIRUBIN 0.4 mg/dL (0.2-1.0); TOTAL PROTEIN 6.6 g/dL (6.4-8.2)
[2017-09-22] MEDS ORDERED: ENOXAPARIN ** NOTE DOSE ** SYRINGE SQ ONE (08:30)
[2017-09-22] MEDS: CARVEDILOL 12.5 MG TABLET PO SCH (08:59)
[2017-09-22] MEDS: PANTOPRAZOLE 40 MG TABLET. PO SCH (09:00)
[2017-09-22] MEDS ORDERED: ALLOPURINOL 100 MG TABLET. PO SCH (09:00)
[2017-09-22] MEDS: PREGABALIN 75 MG CAPSULE PO SCH (09:00)
[2017-09-22 09:16] VITALS: BP 138/92
[2017-09-22 10:35] VITALS: BP 148/87
[2017-09-22] MEDS ORDERED: RIVA10TA PO ×2 (10:45→10:46)
--- NOTE | 2017-09-22 12:24 | SSS ---
ADMIT DATE: 09/22/2017 The patient's stay was greater than 8 hours and less than 24. DISCHARGE DIAGNOSES: 1. Right upper extremity deep venous thrombosis. 2. Mild protein-calorie malnutrition. 3. History of coronary artery disease. 4. Pancreas and kidney transplant recipient. 5. Vision impairment - blind in the left eye. HOSPITAL COURSE: A 57-year-old male who is a pancreatic and kidney transplant recipient who has an AV fistula in the right arm which is no longer being used since 2010. He did develop acute pain and swelling in that arm and CT shows a nonocclusive clot. He was admitted for Lovenox and then to transition to a hernández anticoagulant today. ALLERGIES: None. MEDICATIONS: Correct and on the MAR. HABITS: Does not smoke, no alcohol, no drugs. Lives in [place] and does not work. He is on disability. REVIEW OF SYSTEMS: As per HPI. OBJECTIVE: VITAL SIGNS: Blood pressure 148/87, respirations 20, pulse 70, temperature 97.4, pulse ox 98% on room air. Height 68 inches, weight 205.5 pounds. GENERAL: Pleasant male in no acute distress. 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 He is blind in the left eye. Hearing is normal. Nose is patent. His throat is clear. NECK: Supple. LUNGS: Clear. CARDIOVASCULAR: Regular rhythm and rate. ABDOMEN: Soft, nontender. EXTREMITIES: Without edema except for the right arm. He does have an AV fistula there. There is no thrill, but he does have an antecubital pulse and radial pulse. The arm is swollen and mildly tender. The upper extremity ultrasound shows a short-segment nonocclusive thrombus within the proximal subclavian vein. Otherwise, no evidence of DVT. ASSESSMENT: Upper extremity deep venous thrombosis. PLAN: The patient received 2 doses of Lovenox and was sent out on Xarelto and will follow up with his doctors at . Instructions typed out. SARAH MANRIQUE DO DR: JENN/chucky JOB#: [id number] / [id number]
== END 2017-09-22 11:03 | disposition home or self-care (01) ==
LOC: ER 16:03 → ICU 20:35 → ER 21:20 → 1 SOUTH 09-22 07:34
PROVIDERS: ADMIT Family Medicine; ATTEND Family Medicine
DX: I82.621 Acute embolism and thrombosis of deep veins of right upper extremity (principal); E44.1 Mild protein-calorie malnutrition; I25.10 Atherosclerotic heart disease of native coronary artery without angina pectoris; H54.62 Unqualified visual loss, left eye, normal vision right eye; I10 Essential (primary) hypertension; E11.9 Type 2 diabetes mellitus without complications; Z94.0 Kidney transplant status
CPT/HCPCS: 36415; 80048; 80053; 83735; 85025; 85610; 85730; 87641; 93971; 96372; 99285; G0378; G0379; J1650; J2270; J7507; J7517; Q0163

== ENCOUNTER 2018-03-18 22:45 | Emergency (ER) | payer MEDICARE ==
[~2018-03-18] VITALS: Ht 172.7 cm; Wt 87.5 kg
[2018-03-18 22:45] VITALS: BP 125/72
[~2018-03-18 22:45] MED LIST changes: +RIVA10TA PO
--- NOTE | 2018-03-18 22:47 | ED.ADGEN ---
Past History Past Medical History: No Pertinent History, Renal Failure Past Surgical History: Other Additional Past Surgical Histo: renal transplant, pancreatic transplant Smoking: Non-smoker Alcohol Use: None Drug Use: None Adult General Chief Complaint Chief Complaint " I woke up with my Rt arm hurting.. it a lot better now.. and I don't want anything done..I had my fistula out on ... they gave me some pain meds.. but I have not taken them since ... I just panic.. I just want you to discharge me..." HPI HPI Patient is a 57 year old male who presents with above hx and complaints Rt. arm pain and edema. Pt. had AV fistula removed on . Pt. site looks stable. Does have swollen Rt arm, but pt states it is 4 x better than just after the surgery. Pt. distal neurovascular intact. Pulses equal and capillary return is equal to Lt. arm and hand. Pt. patient currently refusing any evaluation for DVT or lab work. BP is currently stable. Patient insisting on being discharged before workup. Patient follows at for his care. Pt. last HD 2009 , transplant also 2010 kidney and pancreas. Review of Systems Review of Systems Constitutional: Denies fever or chills [] Eyes: Denies change in visual acuity, redness, or eye pain [] HENT: Denies nasal congestion or sore throat [] Respiratory: Denies cough or shortness of breath [] Cardiovascular: No additional information not addressed in HPI [] GI: Denies abdominal pain, nausea, vomiting, bloody stools or diarrhea [] : Denies dysuria or hematuria [] Musculoskeletal: Denies back pain or joint pain complaints of right arm pain Integument: Denies rash or skin lesions [] Neurologic: Denies headache, focal weakness or sensory changes [] Endocrine: Denies polyuria or polydipsia [] All other systems were reviewed and found to be within normal limits, except as documented in this note. Family History Family History Noncontributory Current Medications Current Medications See nursing for home meds Allergies Allergies Allergies Coded Allergies Type Severity Reaction Last Updated Verified No Known Drug Allergies 06/22/17 No Physical Exam Physical Exam Constitutional: , no acute distress, non-toxic appearance. [] HENT: Normocephalic, atraumatic, bilateral external ears normal, oropharynx moist, no oral exudates, nose normal. [] Eyes: PERRLA, EOMI, conjunctiva normal, no discharge. [] Neck: Normal range of motion, no tenderness, supple, no stridor. [] Cardiovascular:Heart rate regular rhythm, no murmur [] Lungs & Thorax: Bilateral breath sounds clear to auscultation [] Abdomen: Bowel sounds normal, soft, no tenderness, no masses, no pulsatile masses. [] Old surgery scars.Transplant kidney is nontender on palpation. Skin: Warm, dry, no erythema, no rash. [] Back: No tenderness, no CVA tenderness. [] Extremities: Right arm tenderness, no cyanosis, no clubbing, ROM intact, right arm edema. [] Incision sites as stable. Neurologic: Alert and oriented X 3, normal motor function, normal sensory function, no focal deficits noted. [] Psychologic: Affect normal, judgement normal, mood normal. [] EKG EKG [] Radiology/Procedures Radiology/Procedures [] Course & Med Decision Making Course & Med Decision Making Pertinent Labs and Imaging studies reviewed. (See chart for details). Begged pt. to at least eval. arm for DVT. Pt. declined any labs or US. Pt. states he will return if he decides to have an evaluation. [] Final Impression Final Impression 1. Rt arm Tenderness and Edema- Post surgery 03/16/2018- shunt removal.[] Dragon Disclaimer Dragon Disclaimer This electronic medical record was generated, in whole or in part, using a voice recognition dictation system. ELIAS MAYORGA MD March 18, 2018 22:47
== END 2018-03-18 23:11 | disposition home or self-care (01) ==
LOC: ER 22:45
DX: G89.18 Other acute postprocedural pain (principal); M79.601 Pain in right arm; R60.1 Generalized edema; Z94.0 Kidney transplant status; Z98.890 Other specified postprocedural states
CPT/HCPCS: 99281

== ENCOUNTER 2019-04-05 05:10 | Emergency (ER) | payer MEDICARE ==
[~2019-04-05] VITALS: Ht 172.7 cm; Wt 86.2 kg
[~2019-04-05 05:10] MED LIST changes: +CLON0.5T11 PO; -CLON0.5T3 PO; -GABA600T2 PO; +GABA600T7 PO; +HYDR-3165 PO; -HYDR-971 PO; +METR-34 PO; -METR500T8 PO; +TRAZ-120 PO; -TRAZ50TA15 PO
--- NOTE | 2019-04-05 05:13 | ED.ADGEN ---
Past History Past Medical History: CAD, Depression, High Cholesterol, Pancreatitis, Renal Failure (ELIAS MAYORGA MD) Past Surgical History: Other Additional Past Surgical Histo: renal transplant, pancreatic transplant (ELIAS MAYORGA MD) Smoking: Non-smoker Alcohol Use: None Drug Use: None (ELIAS MAYORGA MD) Adult General Chief Complaint Chief Complaint ".. I ve been sick a couple days.. nausea and vomiting.. now dry heaving.. feel like fever and chills...." (ELIAS MAYORGA MD) [facility] HPI Patient is a 58 year old male who presents with above hx and complaints of nausea and vomiting for the past 2 days. Patient states she is currently having dry heaves. Patient medical history significant for renal and pancreas transplant in 2010. Patient follows at the transplant clinic at . Patient does continue his immuno suppressive meds for his transplants. Patient has some epigastric and right upper tenderness. Patient denies any intake bad food. Patient denies any travel. Patient denies any change in medications. Patient pancreas and kidney transplant sites are nontender. Patient has known history of hypertension, coronary artery disease, DVTs, and hyperkalemia. No history of trauma. Pt. normally follows with Dr. Arce (ELIAS MAYORGA MD) Review of Systems Review of Systems Constitutional:Subjective fever or chills [] Eyes: Denies change in visual acuity, redness, or eye pain [] HENT: Denies nasal congestion or sore throat [] Respiratory: Denies cough or shortness of breath [] Cardiovascular: No additional information not addressed in HPI [] GI: Complaints of epigastric and right upper quadrant abdominal pain, nausea, vomiting. Patient denies, bloody stools or diarrhea [] : Denies dysuria or hematuria [] Musculoskeletal: Denies back pain or joint pain [] Integument: Denies rash or skin lesions [] Neurologic: Denies headache, focal weakness or sensory changes [] Endocrine: Denies polyuria or polydipsia [] All other systems were reviewed and found to be within normal limits, except as documented in this note. (ELIAS MAYORGA MD) Family History Family History Hypertension, diabetes (ELIAS MAYORGA MD) Current Medications Current Medications Current Medications Medications (Trade) Dose Ordered Sig/Karl Start Time Stop Time Status Last Admin Dose Admin Dicyclomine HCl (Bentyl) 10 mg 1X ONCE 04/05/19 07:15 04/05/19 07:16 DC 04/05/19 07:07 10 MG Famotidine (Pepcid Vial) 20 mg 1X ONCE 04/05/19 07:15 04/05/19 07:16 DC 04/05/19 07:07 20 MG Lactated Ringer's 1,000 ml @ 1,000 mls/hr Q1H 04/05/19 05:30 04/05/19 06:29 DC Lorazepam (Ativan Inj) 2 mg 1X ONCE 04/05/19 08:00 04/05/19 08:01 DC 04/05/19 07:55 2 MG Magnesium Sulfate 100 ml @ 100 mls/hr 1X ONCE 04/05/19 08:00 04/05/19 08:59 DC 04/05/19 08:00 100 MLS/HR Ondansetron HCl (Zofran) 8 mg 1X ONCE 04/05/19 05:30 04/05/19 05:44 DC 04/05/19 05:58 8 MG Prochlorperazine Edisylate (Compazine) 10 mg 1X ONCE 04/05/19 07:15 04/05/19 07:16 DC 04/05/19 07:08 10 MG Sodium Chloride 1,000 ml @ 1,000 mls/hr 1X ONCE 04/05/19 05:45 04/05/19 06:44 DC 04/05/19 05:55 1,000 MLS/HR (BRIGIDO CHOI DO) Allergies Allergies Allergies Coded Allergies Type Severity Reaction Last Updated Verified No Known Drug Allergies 06/22/17 No (BRIGIDO CHOI DO) Physical Exam Physical Exam Constitutional: Moderately acute distress, non-toxic appearance. [] HENT: Normocephalic, atraumatic, bilateral external ears normal, oropharynx moist, no oral exudates, nose normal. [] Eyes: PERRLA, EOMI, conjunctiva normal, no discharge. Neck: Normal range of motion, no tenderness, supple, no stridor. [] Cardiovascular:Heart rate regular rhythm, no murmur []PMI to the left Lungs & Thorax: Bilateral breath sounds equal at apexes auscultation [] Abdomen: Bowel sounds decreased, soft, epigastric and right upper quadrant tenderness, no masses, no pulsatile masses. Mild rebound to right upper quadrant. Kidney and pancreas transplant plant sites are nontender. Abdomen scars. Skin: Warm, dry, no erythema, no rash. [] Back: No tenderness, no CVA tenderness. [] Extremities: No tenderness, no cyanosis, no clubbing, ROM intact, no edema. Old AV fistula right arm Neurologic: Alert and oriented X 3, normal motor function, normal sensory function, no focal deficits noted. [] Psychologic: Affect anxious, judgement normal, mood normal. [] (ELIAS MAYORGA MD) Current Patient Data Vital Signs Vital Signs Date Time Temp Pulse Resp B/P (MAP) Pulse Ox O2 Delivery O2 Flow Rate FiO2 04/05/19 09:41 94 20 153/73 (99) 100 Room Air 04/05/19 05:19 98.5 (BRIGIDO CHOI DO) Lab Results Laboratory Tests Test 04/05/19 05:30 04/05/19 05:35 04/05/19 05:47 Blood pH 7.42 (7.35-7.46) Blood Gas PCO2 33 mmHg (35-46) L Blood Gas PO2 77 mmHg (80-100) L Blood Gas HCO3 21 mmol/L (21-28) Arterial Bld O2 Saturation (Calc) 96 % (92-99) FiO2 21 % Erythrocyte Sedimentation Rate 0 (0-15) White Blood Count 4.9 x10^3/uL (4.0-11.0) Red Blood Count 5.06 x10^6/uL (4.30-5.70) Hemoglobin 12.4 g/dL (13.0-17.5) L Hematocrit 39.0 % (39.0-53.0) Mean Corpuscular Volume 77 fL (79-100) L Mean Corpuscular Hemoglobin 25 pg (25-35) Mean Corpuscular Hemoglobin Concent 32 g/dL (31-37) Red Cell Distribution Width 16.4 % (11.5-14.5) H Platelet Count 234 x10^3/uL (140-400) Neutrophils (%) (Auto) 69 % (31-73) Lymphocytes (%) (Auto) 15 % (24-48) L Monocytes (%) (Auto) 13 % (0-9) H Eosinophils (%) (Auto) 2 % (0-3) Basophils (%) (Auto) 1 % (0-3) Neutrophils # (Auto) 3.4 x10^3uL (1.8-7.7) Lymphocytes # (Auto) 0.7 x10^3/uL (1.0-4.8) L Monocytes # (Auto) 0.6 x10^3/uL (0.0-1.1) Eosinophils # (Auto) 0.1 x10^3/uL (0.0-0.7) Basophils # (Auto) 0.0 x10^3/uL (0.0-0.2) Prothrombin Time 10.5 SEC (9.4-11.4) Prothrombin Time INR 1.1 (0.9-1.1) PTT 25 SEC (23-33) D-Dimer (Palak) 5.70 mg/L (0.00-0.50) H Sodium Level 130 mmol/L (136-145) L Potassium Level 4.2 mmol/L (3.5-5.1) Chloride Level 95 mmol/L (98-107) L Carbon Dioxide Level 24 mmol/L (21-32) Anion Gap 11 (6-14) Blood Urea Nitrogen 14 mg/dL (8-26) Creatinine 1.2 mg/dL (0.7-1.3) Estimated GFR (Cockcroft-Gault) 74.7 Glucose Level 96 mg/dL (70-99) Lactic Acid Level 1.9 mmol/L (0.4-2.0) Calcium Level 9.8 mg/dL (8.5-10.1) Magnesium Level 1.2 mg/dL (1.8-2.4) L Total Bilirubin 1.3 mg/dL (0.2-1.0) H Direct Bilirubin 0.3 mg/dL (0.0-0.2) H Aspartate Amino Transferase (AST) 89 U/L (15-37) H Alanine Aminotransferase (ALT) 67 U/L (16-63) H Alkaline Phosphatase 104 U/L (46-116) Creatine Kinase 1101 U/L (39-308) H Troponin I Quantitative 0.019 ng/mL (0-0.055) QM-Nrk-X-Type Natriuretic Peptide 102 pg/mL (0-124) Total Protein 8.1 g/dL (6.4-8.2) Albumin 4.3 g/dL (3.4-5.0) Amylase Level 103 U/L (25-115) Lipase 108 U/L (73-393) Thyroid Stimulating Hormone (TSH) 1.024 uIU/mL (0.358-3.740) (BRIGIDO CHOI DO) EKG EKG My interpretation EKG shows sinus rhythm at 88 bpm. No findings of acute morphology. No findings acute STEMI of contralateral changes.[] (ELIAS MAYORGA MD) Radiology/Procedures Radiology/Procedures Xrays pending at shift change. (ELIAS MAYORGA MD) Impressions: Abdomen, 2 views, 04/05/2019: HISTORY: Nausea and vomiting There are surgical clips in the right abdomen and pelvis. There are several rim-like calcifications in the right midabdomen. A CT study from 09/02/2017 suggests that these may be augusta calcifications or related to areas of prior fat necrosis. Gas is present in large and small bowel in a nonspecific pattern. There is moderate amount gas in the stomach. There is a moderate amount of stool in the right colon. No free air seen in the abdomen. There is no evidence of organomegaly IMPRESSION: 1. Postsurgical changes. 2. No acute abdominal abnormality is detected. Electronically signed by: Chavez Hatfield MD (04/05/2019 7:48 AM) [facility] DICTATED AND SIGNED BY: CHAVEZ HATFIELD MD DATE: 04/05/19 0748 CC: BRIGIDO CHOI DO; ELIAS MAYORGA MD; SATURNINO ARCE ~ Chest, 2 views, 04/05/2019: HISTORY: Nausea, vomiting, chest pain Comparison is made to a study from 06/22/2017. There has been a previous median sternotomy. There is a radiopacity projected over the right innominate vein region. The appearance is suggestive of a deformed stent. Correlation with the patient's interventional history is suggested. The heart size is normal. The pulmonary vascularity is normal. No pulmonary infiltrate is seen. There is no evidence of pleural fluid. IMPRESSION: No acute cardiopulmonary abnormality is detected. Electronically signed by: Chavez Hatfield MD (04/05/2019 7:45 AM) [facility] DICTATED AND SIGNED BY: CHAVEZ HATFIELD MD DATE: 04/05/19 0745 CC: BRIGIDO CHOI DO; ELIAS MAYORGA MD; ALISSA,SATURNINO Alberts ~ (BRIGIDO CHOI DO) Course & Med Decision Making Course & Med Decision Making Pertinent Labs and Imaging studies reviewed. (See chart for details) Labs. pending at shift change. Pt. disposition will be made by Dr. Choi. [] (ELIAS MAYORGA MD) Course & Med Decision Making The patient was initially given 1 L of normal saline and 8 mg of Zofran. He continued to have vomiting. I've given him additional 10 mg of Compazine, 20 mg of Pepcid, and 10 mg of Bentyl. His labs remarkable for mild liver enzyme elevation and low magnesium. Review of his chart shows that he is frequently below 2 for his magnesium but he has not been as low as 1.2 in the past. I will replace his magnesium with 1 g IV. His abdominal and chest x-rays are unremarkable. His lactic acid is within normal limits. His blood gas is 7.42. The patient does seem restless and anxious. I will give him 2 mg of Ativan IV. He tells me he has been having bowel movements, though they are somewhat constipated lately. He has had decreased urine output. His creatinine is 1.2. The patient's vomiting is now controlled. He is being very strange about giving us urine sample. He has been told multiple times that we would like to run his urine for infection, but has thus far refused to urinate for us. Given his normal creatinine 1.2, lack of fever, no white count and now controlled vomiting, I do not feel this is an absolute necessity. The patient is now stabilized and ready for discharge. (BRIGIDO CHOI DO) Final Impression Final Impression 1. Nausea and Vomiting 2. Renal and Pancrease Transplant 2010[] (ELIAS MAYORGA MD) Final Impression vomiting, intractable, mild dehydration, constipation (BRIGIDO CHOI DO) Dragon Disclaimer Dragon Disclaimer This electronic medical record was generated, in whole or in part, using a voice recognition dictation system. (ELIAS MAYORGA MD) ELIAS MAYORGA MD April 05, 2019 05:13 BRIGIDO CHOI DO April 05, 2019 07:58
[2019-04-05] MEDS ORDERED: ONDANSETRON PF 4 MG/2 ML VIAL. IV ONE (05:30)
[2019-04-05] MEDS ORDERED: IV RINGERS SOLUTION,LACTATED 1,000 ML IV SCH (05:30)
[2019-04-05] MEDS ORDERED: IV NORMAL SALINE 1,000ML 1,000 ML IV ONE (05:45)
[2019-04-05 06:20] LABS: BASO % 1 % (0-3); EOS # 0.1 x10^3/uL (0.0-0.7); EOS % 2 % (0-3); HEMOGLOBIN 12.4 g/dL (13.0-17.5); LYMPH # 0.7 x10^3/uL (1.0-4.8); LYMPH % 15 % (24-48); MEAN CORPUSCULAR HEMOGLOBIN 25 pg (25-35); MEAN CORPUSCULAR HGB CONC 32 g/dL (31-37); MEAN CORPUSCULAR VOLUME 77 fL (79-100); MONO # 0.6 x10^3/uL (0.0-1.1); MONO % 13 % (0-9); NEUT # 3.4 x10^3uL (1.8-7.7); NEUT % 69 % (31-73); PLATELET COUNT 234 x10^3/uL (140-400); RED BLOOD COUNT 5.06 x10^6/uL (4.30-5.70); RED CELL DISTRIBUTION WIDTH 16.4 % (11.5-14.5); WHITE BLOOD COUNT 4.9 x10^3/uL (4.0-11.0)
[2019-04-05 06:40] LABS: ALBUMIN 4.3 g/dL (3.4-5.0); CALCIUM 9.8 mg/dL (8.5-10.1); CREATININE 1.2 mg/dL (0.7-1.3); DIRECT BILIRUBIN 0.3 mg/dL (0.0-0.2); GFR 74.7; MAGNESIUM 1.2 mg/dL (1.8-2.4); POTASSIUM 4.2 mmol/L (3.5-5.1); TOTAL BILIRUBIN 1.3 mg/dL (0.2-1.0); TOTAL PROTEIN 8.1 g/dL (6.4-8.2)
[2019-04-05 07:00] LABS: BGAS PH 7.42 (7.35-7.46)
[2019-04-05] MEDS ORDERED: PROCHLORPERAZINE 10 MG/2 ML VIAL. IV ONE (07:15)
[2019-04-05] MEDS ORDERED: DICYCLOMINE 20 MG/2 ML AMPUL. IM ONE (07:15)
[2019-04-05] MEDS ORDERED: FAMOTIDINE 20 MG/2 ML VIAL IVP ONE (07:15)
--- NOTE | 2019-04-05 07:47 | RAD ---
Chest, 2 views, 04/05/2019: HISTORY: Nausea, vomiting, chest pain Comparison is made to a study from 06/22/2017. There has been a previous median sternotomy. There is a radiopacity projected over the right innominate vein region. The appearance is suggestive of a deformed stent. Correlation with the patient's interventional history is suggested. The heart size is normal. The pulmonary vascularity is normal. No pulmonary infiltrate is seen. There is no evidence of pleural fluid. IMPRESSION: No acute cardiopulmonary abnormality is detected. Electronically signed by: Chavez Hatfield MD (04/05/2019 7:45 AM) [facility]
--- NOTE | 2019-04-05 07:50 | RAD ---
Abdomen, 2 views, 04/05/2019: HISTORY: Nausea and vomiting There are surgical clips in the right abdomen and pelvis. There are several rim-like calcifications in the right midabdomen. A CT study from 09/02/2017 suggests that these may be augusta calcifications or related to areas of prior fat necrosis. Gas is present in large and small bowel in a nonspecific pattern. There is moderate amount gas in the stomach. There is a moderate amount of stool in the right colon. No free air seen in the abdomen. There is no evidence of organomegaly IMPRESSION: 1. Postsurgical changes. 2. No acute abdominal abnormality is detected. Electronically signed by: Chavez Hatfield MD (04/05/2019 7:48 AM) [facility]
[2019-04-05] MEDS ORDERED: MAGNESIUM SULFATE 1GM 100 ML IV ONE (08:00)
[2019-04-05] MEDS ORDERED: ONDA8TAB15 PO (09:19)
[2019-04-05] MEDS ORDERED: PROC10TA57 PO (09:19)
--- NOTE | 2019-04-05 09:28 | EKG ---
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
[2019-04-05 09:41] VITALS: BP 153/73
== END 2019-04-05 09:47 | disposition home or self-care (01) ==
LOC: ER 05:10
DX: E86.0 Dehydration (principal); K59.00 Constipation, unspecified; I25.10 Atherosclerotic heart disease of native coronary artery without angina pectoris; E78.00 Pure hypercholesterolemia, unspecified; N19 Unspecified kidney failure; Z94.0 Kidney transplant status; Z94.83 Pancreas transplant status
CPT/HCPCS: 36415; 71046; 74021; 80048; 80076; 82150; 82550; 82803; 83605; 83690; 83735; 83880; 84443; 84484; 85025; 85379; 85610; 85651; 85730; 87040; 93005; 96361; 96365; 96366; 96372; 96375; 99285; J0500; J0780; J2060; J2405; J3475; J3490; J7030

== ENCOUNTER 2019-12-12 08:29 | Emergency (ER) | payer MEDICARE ==
[~2019-12-12] VITALS: Ht 172.7 cm; Wt 90.0 kg
[~2019-12-12 08:29] MED LIST changes: -CLON0.5T11 PO; +CLON0.5T4 PO; +OMEP40CA45 PO; -OMEP40CA5 PO; +ONDA8TAB15 PO; +PROC10TA57 PO
[2019-12-12] MEDS ORDERED: LIDOCAINE (700MG/PATCH) PATCH. TD ONE (09:30)
[2019-12-12] MEDS ORDERED: DEXAMETHASONE SOD PHOS 10 MG/ML VIAL PO ONE (09:30)
[2019-12-12] MEDS ORDERED: ACETAMINOPHEN 500 MG TABLET PO ONE (09:30)
--- NOTE | 2019-12-12 10:02 | RAD ---
Examination: VENOUS LOWER EXTREMITY RIGHT History: Pain Comparison/Correlation: None Findings: Duplex ultrasound examination of the right lower extremity was performed. Compression and augmentation utilized. Common femoral vein and superficial femoral vein are patent with normal flow. Partially occlusive popliteal, posterior tibial, and peroneal venous thrombus is echogenic. Great saphenous-femoral venous junction unremarkable. Impression: Partially occlusive thrombus which is chronic in appearance involving the popliteal, posterior tibial, and peroneal veins. On 12/12/2019 at 9:58 AM, results were discussed with Dr. Stewart of the emergency Department. Electronically signed by: Pierre Mariscal MD (12/12/2019 9:59 AM) [facility]
--- NOTE | 2019-12-12 10:03 | RAD ---
CHEST PA LATERAL History: Cough Comparison: 03/09/2019 two-view chest x-ray exam . Findings: Frontal and lateral views of the chest were obtained. Sternal wires and surgical clips are present. Heart size and pulmonary vascular are normal. No infiltrate or pleural effusion. Radiopaque density which may represent stent material is present at the right upper medial apical level. The cardiomediastinal silhouette is normal. Pulmonary vasculature is normal. The lungs are clear. No pneumothorax. There is no acute bone abnormality. IMPRESSION: No acute cardiopulmonary process. Electronically signed by: Pierre Mariscal MD (12/12/2019 10:01 AM) [facility]
[2019-12-12] MEDS ORDERED: RIVAROXABAN 15 MG TABLET. PO ONE (10:15)
[2019-12-12 10:34] LABS: BASO % 1 % (0-3); EOS # 0.3 x10^3/uL (0.0-0.7); EOS % 6 % (0-3); HEMATOCRIT 36.4 % (39.0-53.0); HEMOGLOBIN 11.1 g/dL (13.0-17.5); LYMPH # 0.7 x10^3/uL (1.0-4.8); LYMPH % 13 % (24-48); MEAN CORPUSCULAR HEMOGLOBIN 23 pg (25-35); MEAN CORPUSCULAR HGB CONC 31 g/dL (31-37); MEAN CORPUSCULAR VOLUME 76 fL (79-100); MONO % 17 % (0-9); NEUT # 3.6 x10^3uL (1.8-7.7); NEUT % 64 % (31-73); PLATELET COUNT 269 x10^3/uL (140-400); RED BLOOD COUNT 4.76 x10^6/uL (4.30-5.70); RED CELL DISTRIBUTION WIDTH 17.2 % (11.5-14.5); WHITE BLOOD COUNT 5.7 x10^3/uL (4.0-11.0)
--- NOTE | 2019-12-12 10:37 | PHYS DOC ---
Past History Past Medical History: CAD, Depression, DVT, High Cholesterol, Pancreatitis, Renal Failure Past Surgical History: Coronary Bypass Surgery, Other Additional Past Surgical Histo: renal transplant, pancreatic transplant Smoking: Quit Greater Than 1 Year Alcohol Use: None Drug Use: None Adult General Chief Complaint Chief Complaint: LOWER EXT PAIN HPI HPI Patient is a 59-year-old male who presents with right lower extremity pain that began on Tuesday morning. He reports that Tuesday he had to go up and down stairs multiple times and then woke up Tuesday with right lower extremity pain. The pain has been constant and he describes it as aching and stabbing. It began in his right lower back and buttock area and radiates down his right leg. He also reports right lower extremity weakness. Apparently he says that he has "11/10" pain. Denies loss of bowel/bladder. He does report that he goes to for injections for presumed sciatica and last had the injections a few months ago. He also reports swelling in his right lower extremity, but denies shortness of breath and chest pain. He also has a history of DVT in the right upper extremity. Patient reports he is no longer on any anticoagulation medications. Review of Systems Review of Systems Constitutional: Denies fever or chills Eyes: Denies redness, discharge, or eye pain HENT: Denies sore throat, reports sinus congestion Respiratory: Denies shortness of breath, reports cough Cardiovascular: Denies chest pain or palpitations GI: Denies abdominal pain and vomiting, reports nausea : Denies dysuria, hematuria, or increased frequency Musculoskeletal: Denies back pain or joint pain, reports pain in R buttock and hip area that radiates down right leg Integument: Denies rash or skin lesions Neurologic: Denies headache, reports right lower extremity weakness and right foot tingling, denies loss of bowel/bladder Complete systems were reviewed and found to be within normal limits, except as documented in this note. Family History Family History Sister: PE Father: stroke Current Medications Current Medications Current Medications Medications (Trade) Dose Ordered Sig/Karl Start Time Stop Time Status Last Admin Dose Admin Acetaminophen (Tylenol) 500 mg 1X ONCE 12/12/19 09:30 12/12/19 09:31 DC 12/12/19 09:47 500 MG Dexamethasone Sodium Phosphate (Decadron) 10 mg 1X ONCE 12/12/19 09:30 12/12/19 09:31 DC 12/12/19 09:47 10 MG Lidocaine (Lidoderm) 1 patch 1X ONCE 12/12/19 09:30 12/12/19 09:31 DC 12/12/19 09:51 1 PATCH Allergies Allergies Allergies Coded Allergies Type Severity Reaction Last Updated Verified No Known Drug Allergies 06/22/17 No Physical Exam Physical Exam Constitutional: Well developed, well nourished, no acute distress, non-toxic appearance HENT: Normocephalic, atraumatic, oropharynx moist Eyes: Conjunctiva normal, no discharge Neck: Normal range of motion, supple Cardiovascular: Heart rate normal, regular rhythm Lungs & Thorax: Bilateral breath sounds clear to auscultation, no wheezing Abdomen: Soft, no tenderness Skin: Warm, dry, no erythema, no rash Back: No midline tenderness, no erythema, no lumbar paraspinal tenderness Extremities: Mild edema of right lower extremity, right calf is tender to palpation and edematous with no erythema, +4/5 strength of right hip, +5/5 strength of left lower extremity, +2/4 DP pulse b/l Neurologic: Alert and oriented X 3, normal motor function, no focal deficits noted Psychologic: Affect normal, judgement normal Current Patient Data Vital Signs Vital Signs Date Time Temp Pulse Resp B/P (MAP) Pulse Ox O2 Delivery O2 Flow Rate FiO2 12/12/19 08:36 98.5 79 18 157/89 (111) 100 Room Air EKG EKG [] Radiology/Procedures Radiology/Procedures PROCEDURE: CHEST PA & LATERAL CHEST PA LATERAL History: Cough Comparison: 03/09/2019 two-view chest x-ray exam . Findings: Frontal and lateral views of the chest were obtained. Sternal wires and surgical clips are present. Heart size and pulmonary vascular are normal. No infiltrate or pleural effusion. Radiopaque density which may represent stent material is present at the right upper medial apical level. The cardiomediastinal silhouette is normal. Pulmonary vasculature is normal. The lungs are clear. No pneumothorax. There is no acute bone abnormality. IMPRESSION: No acute cardiopulmonary process. Electronically signed by: Pierre Mariscal MD (12/12/2019 10:01 AM) [facility] PROCEDURE: VENOUS LOWER EXTREMITY RIGHT Examination: VENOUS LOWER EXTREMITY RIGHT History: Pain Comparison/Correlation: None Findings: Duplex ultrasound examination of the right lower extremity was performed. Compression and augmentation utilized. Common femoral vein and superficial femoral vein are patent with normal flow. Partially occlusive popliteal, posterior tibial, and peroneal venous thrombus is echogenic. Great saphenous-femoral venous junction unremarkable. Impression: Partially occlusive thrombus which is chronic in appearance involving the popliteal, posterior tibial, and peroneal veins. On 12/12/2019 at 9:58 AM, results were discussed with Dr. Willams of the emergency Department. Electronically signed by: Pierre Mariscal MD (12/12/2019 9:59 AM) [facility] Course & Med Decision Making Course & Med Decision Making Pertinent Labs and Imaging studies reviewed. (See chart for details) Patient is a 59-year-old male who presents with right lower extremity pain that began on Tuesday. Pain has been constant and radiates from patient lower back and right buttock down his right lower extremity. Patient had risk factors for DVT and physical exam finding were concerning for possible right lower extremity DVT. Ultrasound of the right lower extremity was obtained and was positive for DVT. CBC and coags were obtained and Xarelto was initiated. Patient denies shortness of breath and chest pain. Physical exam was not concerning for PE. O2 Sats stable and patient not tachycardic. Right lower extremity pain also had s ome sciatic components. Dexamethasone was given along with Tylenol. Patient also reported cold symptoms with cough and sinus congestion. Chest x-ray was obtained with no concerning findings. Patient stable for discharge with outpatient follow-up with PCP. Discussed findings and plan with patient, who acknowledges understanding and agreement. Dragon Disclaimer Dragon Disclaimer This electronic medical record was generated, in whole or in part, using a voice recognition dictation system. Departure Departure: Impression: Primary Impression: DVT (deep venous thrombosis) Additional Impression: Sciatica Disposition: HOME, SELF-CARE Condition: STABLE Referrals: SATURNINO MAXWELL (PCP) Patient Instructions: Deep Vein Thrombosis, Sciatica, [id number] Scripts Lidocaine (Lidocaine PATCH ) 1 Each Adh..patch 1 EACH TP DAILY for FOR LOCAL PAIN, #10 PATCH REMOVE AFTER 12 HOURS Prov: NOLAN WILLAMS DO 12/12/19 Rivaroxaban (XARELTO) 15 Mg Tablet 1 TAB PO BID for DVT for 21 Days, #42 TAB 0 Refills Prov: NOLAN WILLAMS DO 12/12/19 Orphenadrine Citrate (ORPHENADRINE CITRATE) 100 Mg Tablet.er 1 TAB PO BID PRN for MUSCLE PAIN, #14 TAB 0 Refills Prov: NOLAN WILLAMS DO 12/12/19 Hydrocodone Bit/Acetaminophen (NORCO 5-325 TABLET) 1 Each Tablet 0.5-1 TAB PO Q6HRS PRN for PAIN, #10 TAB Prov: NOLAN WILLAMS DO 12/12/19 Problem Qualifiers Primary Impression: DVT (deep venous thrombosis) DVT location: lower extremity Affected thrombotic vein of extremity: femoral Chronicity: unspecified Laterality: right Qualified Codes: I82.411 - Acute embolism and thrombosis of right femoral vein Additional Impression: Sciatica Laterality: right Qualified Codes: M54.31 - Sciatica, right side NOLAN WILLAMS DO Dec 12, 2019 10:37
[2019-12-12 11:20] VITALS: BP 123/74
[2019-12-12] MEDS ORDERED: HYDR-3165 PO (11:23)
[2019-12-12] MEDS ORDERED: LIDO700A21 TP (11:24)
[2019-12-12] MEDS ORDERED: RIVA15TA PO (11:24)
[2019-12-12] MEDS ORDERED: ORPH-16 PO (11:24)
== END 2019-12-12 11:34 | disposition home or self-care (01) ==
LOC: ER 08:29
DX: I82.401 Acute embolism and thrombosis of unspecified deep veins of right lower extremity (principal); M54.41 Lumbago with sciatica, right side; I25.10 Atherosclerotic heart disease of native coronary artery without angina pectoris; E78.5 Hyperlipidemia, unspecified; N18.9 Chronic kidney disease, unspecified; Z95.1 Presence of aortocoronary bypass graft; Z87.891 Personal history of nicotine dependence
CPT/HCPCS: 36415; 71046; 85025; 85610; 85730; 93971; 99285; J1100

== ENCOUNTER 2020-08-30 15:38 | Emergency (ER) | payer MEDICARE ==
[~2020-08-30] VITALS: Ht 172.7 cm; Wt 87.0 kg
[~2020-08-30 15:38] MED LIST changes: +LIDO700A21 TP; +ORPH-16 PO; +RIVA15TA PO; -TACR5CAP4 PO; +TACR5CAP5 PO
[2020-08-30 17:06] LABS: CALCIUM 10.3 mg/dL (8.5-10.1); CREATININE 1.6 mg/dL (0.7-1.3); GFR 53.3; POTASSIUM 4.3 mmol/L (3.5-5.1)
[2020-08-30 17:08] LABS: BASO % 1 % (0-3); EOS # 0.1 x10^3/uL (0.0-0.7); EOS % 3 % (0-3); HEMATOCRIT 39.3 % (39.0-53.0); HEMOGLOBIN 12.3 g/dL (13.0-17.5); LYMPH # 0.7 x10^3/uL (1.0-4.8); LYMPH % 19 % (24-48); MEAN CORPUSCULAR HEMOGLOBIN 24 pg (25-35); MEAN CORPUSCULAR HGB CONC 31 g/dL (31-37); MEAN CORPUSCULAR VOLUME 77 fL (79-100); MONO # 0.7 x10^3/uL (0.0-1.1); MONO % 19 % (0-9); NEUT # 2.1 x10^3uL (1.8-7.7); NEUT % 58 % (31-73); PLATELET COUNT 142 x10^3/uL (140-400); RED BLOOD COUNT 5.12 x10^6/uL (4.30-5.70); RED CELL DISTRIBUTION WIDTH 20.3 % (11.5-14.5); WHITE BLOOD COUNT 3.7 x10^3/uL (4.0-11.0)
[2020-08-30 17:11] LABS: ALBUMIN 3.5 g/dL (3.4-5.0); ALBUMIN/GLOBULIN RATIO 0.9 (1.0-1.7); TOTAL BILIRUBIN 1.1 mg/dL (0.2-1.0); TOTAL PROTEIN 7.2 g/dL (6.4-8.2)
--- NOTE | 2020-08-30 17:14 | PHYS DOC ---
Past History Past Medical History: CAD, Depression, DVT, Fibromyalgia, GERD, High Cholesterol, Immunosuppression, Pancreatitis, Renal Failure Past Surgical History: Coronary Bypass Surgery, Other Additional Past Surgical Histo: renal transplant, pancreatic transplant Smoking: Quit Greater Than 1 Year Alcohol Use: None Drug Use: None Adult General Chief Complaint Chief Complaint: FATIGUE HPI HPI Patient is a 60-year-old male who presents for fatigue. Patient has extremely complicated past medical history for renal failure, history of kidney transplant on immunosuppressant medications and fibromyalgia. All of his care is managed and followed at [facility]. He was recently advised that he would benefit from iron transfusions and has been trying to set these up locally as he does not like making the trip down to [facility]; however, he has been unsuccessful in this. Patient presents with chronic fatigue without any other concerning signs or symptoms such as fever, chills, chest pain, shortness of breath, abdominal pain, nausea or vomit diarrhea, changes in bladder or bowel function. He is requesting admission for iron transfusion today Review of Systems Review of Systems Fourteen body systems of review of systems have been reviewed. See HPI for pertinent positives and negative responses, other daniel all other systems are negative, non-pertinent or non-contributory Allergies Allergies Allergies Coded Allergies Type Severity Reaction Last Updated Verified No Known Drug Allergies 06/22/17 No Physical Exam Physical Exam Constitutional: Well developed, well nourished, no acute distress, non-toxic appearance. HENT: Normocephalic, atraumatic, bilateral external ears normal, oropharynx moist, no oral exudates, nose normal. Eyes: PERRLA, EOMI, conjunctiva normal, no discharge. Neck: Normal range of motion, no tenderness, supple, no stridor. Cardiovascular: Heart rate regular, sinus rhythm, no murmurs rubs or gallops Lungs & Thorax: Bilateral breath sounds clear to auscultation Abdomen: Bowel sounds normal, soft, no tenderness, no masses, no pulsatile mas ses. Nonsurgical abdomen, no peritoneal signs Skin: Warm, dry, no erythema, no rash. Back: No tenderness, no CVA tenderness. Extremities: No tenderness, no cyanosis, no clubbing, ROM intact, no edema. Right upper extremity fistula in place Neurologic: Alert and oriented X 3, grossly normal motor & sensory function, no focal deficits noted. Psychologic: Affect normal, judgement normal, mood normal. Current Patient Data Vital Signs Vital Signs Date Time Temp Pulse Resp B/P (MAP) Pulse Ox O2 Delivery O2 Flow Rate FiO2 08/30/20 16:05 98.1 73 18 121/76 (91) 100 Room Air Lab Results Laboratory Tests Test 08/30/20 16:35 White Blood Count 3.7 x10^3/uL (4.0-11.0) L Red Blood Count 5.12 x10^6/uL (4.30-5.70) Hemoglobin 12.3 g/dL (13.0-17.5) L Hematocrit 39.3 % (39.0-53.0) Mean Corpuscular Volume 77 fL (79-100) L Mean Corpuscular Hemoglobin 24 pg (25-35) L Mean Corpuscular Hemoglobin Concent 31 g/dL (31-37) Red Cell Distribution Width 20.3 % (11.5-14.5) H Platelet Count 142 x10^3/uL (140-400) Neutrophils (%) (Auto) 58 % (31-73) Lymphocytes (%) (Auto) 19 % (24-48) L Monocytes (%) (Auto) 19 % (0-9) H Eosinophils (%) (Auto) 3 % (0-3) Basophils (%) (Auto) 1 % (0-3) Neutrophils # (Auto) 2.1 x10^3uL (1.8-7.7) Lymphocytes # (Auto) 0.7 x10^3/uL (1.0-4.8) L Monocytes # (Auto) 0.7 x10^3/uL (0.0-1.1) Eosinophils # (Auto) 0.1 x10^3/uL (0.0-0.7) Basophils # (Auto) 0.0 x10^3/uL (0.0-0.2) Platelet Estimate Pending Sodium Level 129 mmol/L (136-145) L Potassium Level 4.3 mmol/L (3.5-5.1) Chloride Level 95 mmol/L (98-107) L Carbon Dioxide Level 25 mmol/L (21-32) Anion Gap 9 (6-14) Blood Urea Nitrogen 12 mg/dL (8-26) Creatinine 1.6 mg/dL (0.7-1.3) H Estimated GFR (Cockcroft-Gault) 53.3 BUN/Creatinine Ratio 8 (6-20) Glucose Level 114 mg/dL (70-99) H Calcium Level 10.3 mg/dL (8.5-10.1) H Total Bilirubin 1.1 mg/dL (0.2-1.0) H Aspartate Amino Transferase (AST) 148 U/L (15-37) H Alanine Aminotransferase (ALT) 81 U/L (16-63) H Alkaline Phosphatase 85 U/L (46-116) Total Protein 7.2 g/dL (6.4-8.2) Albumin 3.5 g/dL (3.4-5.0) Albumin/Globulin Ratio 0.9 (1.0-1.7) L EKG EKG EKG obtained and interpreted by myself at 1709 hrs. as sinus rhythm at 74 bpm, unremarkable intervals, no axis deviation, no ischemic findings, no STEMI Radiology/Procedures Radiology/Procedures PROCEDURE: CHEST AP ONLY Single view chest dated 08/30/2020.: Comparison made to 12/12/2019. Clinical Indication: Fatigue and shortness of breath. Findings: Single upright portable exam of the chest was performed. Heart size and mediastinal contours are stable. Patient is status post median sternotomy.. The lungs are clear without evidence of focal consolidation. No pleural effusion or pneumothorax. Impression:: No acute radiographic abnormality. Stable findings compared to 12/12/2019. Electronically signed by: Sebastien Mccauley MD (08/30/2020 5:20 PM) [id number] Heart Score HEART Score for Chest Pain: HEART Score for Chest Pain Response (Comments) Value History Slighlty/Non-Suspicious 0 ECG Normal 0 Age >45 - < 65 1 Risk Factors >3 Risk Factors or Hx CAD 2 Troponin < Normal Limit 0 Total 3 Risk Factors: Risk Factors: DM, Current or recent (<one month) smoker, HTN, HLP, family history of CAD, obesity. Risk Scores: Risk Factors: DM, Current or recent (<one month) smoker, HTN, HLP, family history of CAD, obesity. Course & Med Decision Making Course & Med Decision Making Pertinent Labs and Imaging studies reviewed. (See chart for details) Work-up grossly unremarkable, patient's hemoglobin has actually improved since last laboratory draw performed at [facility] 07/10/2020 when hemoglobin was found to be 11.3. I discussed with patient there is no surgical and/or emergent findings on my examination and work-up today. I have no criteria to admit well-appearing, hemodynamically stable patient to the hospital. This angered patient I did contact Dr. Henderson, hospitalist at [facility] to discuss potential of assisting patient with arranging iron transfusions for the upcoming week. Patient was arranged to have iron transfusion this upcoming Tuesday which I feel is appropriate Patient updated on this and happy with the resolution. Joint decision to discharge home in stable condition with strict return precautions given patient's numerous comorbidities. All questions and concerns addressed prior to ER departure in stable condition with outpatient follow-up for iron transfusion advised Ronnell Disclaimer Ronnell Disclaimer This electronic medical record was generated, in whole or in part, using a voice recognition dictation system. Departure Departure: Impression: Primary Impression: Microcytic anemia Additional Impression: Nausea Disposition: 01 DC HOME SELF CARE/HOMELESS Condition: STABLE Referrals: SATURNINO MAXWELL (PCP) Scripts Ondansetron Hcl (ZOFRAN) 4 Mg Tablet 1 TAB PO Q8HRS for NAUSEA, #10 TAB Prov: ANSELMO BARNETT DO 08/30/20 Problem Qualifiers ANSELMO BARNETT DO Aug 30, 2020 17:14
--- NOTE | 2020-08-30 17:23 | RAD ---
Single view chest dated 08/30/2020.: Comparison made to 12/12/2019. Clinical Indication: Fatigue and shortness of breath. Findings: Single upright portable exam of the chest was performed. Heart size and mediastinal contours are stable. Patient is status post median sternotomy.. The lungs are clear without evidence of focal consolidation. No pleural effusion or pneumothorax. Impression:: No acute radiographic abnormality. Stable findings compared to 12/12/2019. Electronically signed by: Sebastien Mccauley MD (08/30/2020 5:20 PM) [id number]
[2020-08-30] MEDS ORDERED: ONDA4TAB7 PO (17:57)
[2020-08-30 18:00] LABS: % BASOS 1 % (0-3); % EOS 2 % (0-5); % LYMPHS 19 % (24-48); % MONOS 14 % (0-10); % SEGS 64 % (35-66); PLT ESTIMATE DECREASED (ADEQUATE)
[2020-08-30] MEDS ORDERED: ONDANSETRON PF 4 MG/2 ML VIAL. IVP ONE (18:00)
[2020-08-30 18:01] LABS: ANISOCYTOSIS MOD; HYPOCHROMIA SLIGHT
[2020-08-30 18:06] VITALS: BP 117/72
--- NOTE | 2020-08-30 18:20 | EKG ---
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
== END 2020-08-30 18:43 | disposition home or self-care (01) ==
LOC: ER 15:38
DX: D50.9 Iron deficiency anemia, unspecified (principal); R11.0 Nausea; I25.810 Atherosclerosis of coronary artery bypass graft(s) without angina pectoris; M79.7 Fibromyalgia; K21.9 Gastro-esophageal reflux disease without esophagitis; N19 Unspecified kidney failure; E78.00 Pure hypercholesterolemia, unspecified; Z86.718 Personal history of other venous thrombosis and embolism; Z87.891 Personal history of nicotine dependence
CPT/HCPCS: 36415; 71045; 80053; 85007; 85025; 93005; 96374; 99285; J2405

== ENCOUNTER 2021-01-14 05:10 | Inpatient (IN) | payer MEDICARE ==
[~2021-01-14] VITALS: Ht 172.7 cm; Wt 88.5 kg
[~2021-01-14 05:10] MED LIST changes: +ONDA4TAB7 PO; +VITA100C10 PO; -VITA100C8 PO
--- NOTE | 2021-01-14 05:13 | PHYS DOC ---
Past History Past Medical History: CAD, Depression, DVT, Fibromyalgia, GERD, High Cholesterol, Immunosuppression, Pancreatitis, Renal Failure (ELIAS MAYORGA MD) Past Surgical History: Coronary Bypass Surgery, Other Additional Past Surgical Histo: renal transplant, pancreatic transplant (ELIAS MAYORGA MD) Smoking: Quit Greater Than 1 Year Alcohol Use: None Drug Use: None (ELIAS MAYORGA MD) General Adult EDM: Chief Complaint: SHORTNESS OF BREATH HPI: HPI: "..I am feeling really weak... and short of breath...I usually go to ...for all my care.. but.. I figured.. I should stop here ...since I was feeling so rotten... This is been coming on the last few days.>> Patient is a 60 year old male who presents with above hx and complaints of dyspnea, fatigue, weakness, malaise and wheezing. Patient has significant medical history of end-stage renal disease with renal transplant in 2010 and coronary artery disease with bypass surgery in 2013. 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 Patient normally follows for all his care at . Patient did received hemodialysis by fistula prior to his transplant. 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 No specific history of Covid contacts. Patient admits to somewhat noncompliance to his immunosuppression drugs for his renal transplant. No recent travel. Patient is normally somewhat hypertensive and is chronically anemic. He did recently have a televisit with .. Pt. no longer smokes. (ELIAS MAYORGA MD) Review of Systems: Review of Systems: Constitutional: Denies fever or chills Eyes: Denies change in visual acuity HENT: Denies nasal congestion or sore throat Respiratory: Complains of wheezing and shortness of breath Cardiovascular: Denies chest pain or edema GI: Denies abdominal pain, nausea, vomiting, bloody stools or diarrhea : Denies dysuria Musculoskeletal: Complains of generalized fatigue and weakness Integument: Denies rash Neurologic: Denies headache, focal weakness or sensory changes Endocrine: Denies polyuria or polydipsia Lymphatic: Denies swollen glands Psychiatric: Denies depression or anxiety (ELIAS MAYORGA MD) Family History: Family History: Noncontributory to presentation (ELISA MAYORGA MD) Current Medications: Current Meds: See nursing for home meds (ELIAS MAYORGA MD) Allergies: Allergies: Allergies Coded Allergies Type Severity Reaction Last Updated Verified No Known Drug Allergies 08/30/20 No (ELIAS MAYORGA MD) Physical Exam: PE: Constitutional: Moderate acute distress, ill in appearance. HENT: Normocephalic, atraumatic, bilateral external ears normal, oropharynx moist, no oral exudates, nose normal. [] Eyes: PERRLA, EOMI, conjunctiva pale, no discharge. [] Neck: Normal range of motion, no tenderness, supple, no stridor. [] Cardiovascular: Tachycardia heart rate regular rhythm, no murmur, PMI to left. Monitor shows a sinus rhythm. Lungs & Thorax: Bilateral breath sounds equal apex with scattered wheezes and some basilar crackles on auscultation []The patient has midline sternotomy scar Abdomen: Bowel sounds decreased, soft, no tenderness, no masses, no pulsatile masses. Renal transplant is nontender to palpation. Old surgery scars. Obese. Skin: Warm, mildly diaphoretic, no erythema, no rash. [] Back: No tenderness, no CVA tenderness. [] Extremities: No tenderness, no cyanosis, no clubbing, ROM intact, no edema. Previous graft sites Neurologic: Alert and oriented X 3, moves all extremities on request, does appear to have distal sensory, no focal deficits noted. [] Psychologic: Affect anxious, judgement normal, mood depressed. (ELIAS MAYORGA MD) PE: Constitutional: Well developed, well nourished, ill but non-toxic appearance HENT: Normocephalic, atraumatic Eyes: Conjunctiva normal, no discharge Neck: Normal range of motion, no tenderness, supple Lungs & Thorax: Tachypnea, equal chest rise and fall Abdomen: Soft, no tenderness Skin: Warm, dry, no erythema, no rash Extremities: No tenderness, ROM intact, no edema Neurologic: Alert and oriented X 3, no focal deficits noted Psychologic: Affect normal, judgment normal (NOLAN WILLAMS DO) EKG: EKG: EKG pending at shift change [] (ELIAS MAYORGA MD) EKG: @0613 NSR at 87bpm with some PACs, NO ST elevation, QRS 90ms, QT/QTc 366/441ms (NOLAN WILLAMS DO) Radiology/Procedures: Radiology/Procedures: Chest x-ray pending at shift change [] [address] [address] IMAGING REPORT Signed PATIENT: DANNA ZHONG WACCOUNT: [id number] : 1960 LOCATION: ER AGE: 60 SEX: M EXAM STATUS: REG ER ORD. PHYSICIAN: ELIAS MAYORGA MD REASON: dyspnea PROCEDURE: PORTABLE CHEST 1V XR CHEST 1V INDICATION: dyspnea . COMPARISON STUDY: 08/30/2020. FINDINGS: Lungs: Normal lung volume. No pulmonary mass or consolidation. The tracheobron chial tree and hilar structures are normal. Pleura: No pleural effusion or pneumothorax. Heart and Mediastinum: Stable cardiomediastinal silhouette and great vessels. IMPRESSION: No acute cardiopulmonary process. Electronically signed by: Tomy Woodson MD (01/14/2021 5:59 AM) [facility] DICTATED AND SIGNED BY: TOMY WOODSON MD DATE: 01/14/21 0554 CC: ELIAS MAYORGA MD; SATURNINO MAXWELL ~MTH0 0 (ELIAS MAYORGA MD) Radiology/Procedures: PROCEDURE: PORTABLE CHEST 1V XR CHEST 1V INDICATION: dyspnea . COMPARISON STUDY: 08/30/2020. FINDINGS: Lungs: Normal lung volume. No pulmonary mass or consolidation. The tracheobronchial tree and hilar structures are normal. Pleura: No pleural effusion or pneumothorax. Heart and Mediastinum: Stable cardiomediastinal silhouette and great vessels. IMPRESSION: No acute cardiopulmonary process. Electronically signed by: Tomy Woodson MD (01/14/2021 5:59 AM) [facility] (NOLAN WILLAMS DO) Heart Score: HEART Score for Chest Pain: HEART Score for Chest Pain Response (Comments) Value Age >45 - < 65 1 Risk Factors 1 or 2 Risk Factors 1 Total 2 Risk Factors: Risk Factors: DM, Current or recent (<one month) smoker, HTN, HLP, family history of CAD, obesity. Risk Scores: Score 0 - 3: 2.5% MACE over next 6 weeks - Discharge Home Score 4 - 6: 20.3% MACE over next 6 weeks - Admit for Clinical Observation Score 7 - 10: 72.7% MACE over next 6 weeks - Early Invasive Strategies (ELIAS MAYORGA MD) C/O Chest Pain: N/A (NOLAN WILLAMS DO) Course & Med Decision Making: Course & Med Decision Making Pertinent Labs and Imaging studies reviewed. (See chart for details) Discussed presentation, testing and treatment plan with Dr. Willams at shift change. Labs and Xrays pending. He will make disposition of pt. Discussed with patient of need for possible transfer to . Do have concern for sepsis/sirs with an atypical presentation in a immune suppressed patient. Impression: 1. Dyspnea 2. Fatigue and weakness 3. Renal transplant patient transplant-2010 4. History of coronary artery disease status post bypass surgery 2013 [] (ELIAS MAYORGA MD) Course & Med Decision Making 0600- Sign out received from Dr. Truong for patient with report of SOA. EKG stable. CXR stable. Labs pending at time of sign out. Hx of patient dropping O2 sats down to 87% on walking back. Improved with rest. Patient seen and evaluated by myself. Labs returned with significantly elevated WBC. Hyponatremia noted. Hypomagnesemia addressed. Lactic acid elevated. Empiric antibiotics provided. Cannot exclude COVID-19. COVID testing pending. Patient unable to provide urine at this time. UA ordered. Patient requiring admission for further evaluation and treatment. Offered admission to [facility]. Patient requests to be transferred to due to continuity of care as he typically follows with due to history of kidney transplant. Utilized transfer center. [facility] reporting they are full and holding patient's in the ED. Recommendation to admit to our facility but to call for any further concern regarding transplant issues. Patient requiring admission for further evaluation and treatment. Discussed with Dr. Henderson (hospitalist) who is in agreement with admission. Discussed findings and plan with patient, who acknowledges understanding and agreement. (NOLAN WILLAMS DO) Dragon Disclaimer: Dragon Disclaimer: This electronic medical record was generated, in whole or in part, using a voice recognition dictation system. (ELIAS MAYORGA MD) Departure Departure: Impression: Primary Impression: Severe sepsis Additional Impressions: Suspected COVID-19 virus infection Hypomagnesemia Hyponatremia Hx of kidney transplant Dyspnea and respiratory abnormalities Disposition: 09 ADMITTED INPT THIS HOSP Admitting Physician: Ravi Henderson (NOLAN WILLAMS DO) Condition: GUARDED Referrals: SATURNINO MAXWELL (PCP) Dragon Disclaimer This chart was dictated in whole or in part using Voice Recognition software in a busy, high-work load, and often noisy Emergency Department environment. It may contain unintended and wholly unrecognized errors or omissions. (ELIAS MAYORGA MD) Dragon Disclaimer This chart was dictated in whole or in part using Voice Recognition software in a busy, high-work load, and often noisy Emergency Department environment. It may contain unintended and wholly unrecognized errors or omissions. (NOLAN WILLAMS DO) Critical Care Time Critical care time was 30 minutes which includes time at bedside, spent in discussion of patient's care with specialists and/or family members, with interpretation of laboratory and/or radiological studies and is exclusive of procedures. (NOLAN WILLAMS DO) Critical Care Time Critical care time was [] minutes exclusive of procedures. (ELIAS MAYORGA MD) Sepsis Assessment Date and Time of Assessment Date: Jan 14, 2021 Time: 09:00 (NOLAN WILLAMS DO) Fluid Challenge: Is the fluid challenge complet: No IBW Target Volume Used: No BMI > 30: No (NOLAN WILLAMS DO) Vital Signs Vital Signs Vital Signs Date Time Temp Pulse Resp B/P (MAP) Pulse Ox O2 Delivery O2 Flow Rate FiO2 01/14/21 09:21 81 18 135/76 (95) 96 Room Air 01/14/21 05:10 98.9 Temperature Source: Oral (NOLAN WILLAMS DO) Vital Signs Vital Signs Date Time Temp Pulse Resp B/P (MAP) Pulse Ox O2 Delivery O2 Flow Rate FiO2 01/14/21 09:21 81 18 135/76 (95) 96 Room Air 01/14/21 05:10 98.9 (ELIAS MAYORGA MD) Respirations Respiratory Effort: Normal, Non-Labored Respiratory Pattern: Normal (NOLAN WILLAMS DO) Cardiovascular Pulse Rhythm: Regular Heart: Nml rate, reg. rhythm (WILLAMS,NOLAN R DO) Lung Sounds Breath Sounds: Crackles (WILLAMS,NOLAN R DO) Capillary Refill Capillary Refill: Rt Hand < 3 seconds (WILLAMS,NOLAN R DO) Peripheral Pulse Pulse Location: Radial Pulse Strength: Normal (2+) Pulse Assessment Method: Palpation (WILLAMS,NOLAN R DO) Integumentary Skin: Warm, Dry, No Rashes Skin Moisture: Dry Skin Turgor: Normal Skin Color: warm, dry Fingernail Color: WNL (WILLAMS,NOLAN R DO) ELIAS MAYORGA MD Jan 14, 2021 05:12 WILLAMSNOLAN DO Jan 14, 2021 06:23
[2021-01-14] MEDS ORDERED: ALBUTEROL SULFATE 8GM INHALER. INH ONE (05:30)
--- NOTE | 2021-01-14 06:01 | RAD ---
XR CHEST 1V INDICATION: dyspnea . COMPARISON STUDY: 08/30/2020. FINDINGS: Lungs: Normal lung volume. No pulmonary mass or consolidation. The tracheobronchial tree and hilar st ructures are normal. Pleura: No pleural effusion or pneumothorax. Heart and Mediastinum: Stable cardiomediastinal silhouette and great vessels. IMPRESSION: No acute cardiopulmonary process. Electronically signed by: Eleno Woodson MD (01/14/2021 5:59 AM) [facility]
--- NOTE | 2021-01-14 06:29 | EKG ---
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
[2021-01-14 06:49] LABS: BASO # 0.1 x10^3/uL (0.0-0.2); BASO % 0 % (0-3); EOS # 0.1 x10^3/uL (0.0-0.7); EOS % 0 % (0-3); HEMATOCRIT 42.5 % (39.0-53.0); HEMOGLOBIN 13.6 g/dL (13.0-17.5); LYMPH # 0.5 x10^3/uL (1.0-4.8); LYMPH % 2 % (24-48); MEAN CORPUSCULAR HEMOGLOBIN 26 pg (25-35); MEAN CORPUSCULAR HGB CONC 32 g/dL (31-37); MEAN CORPUSCULAR VOLUME 80 fL (79-100); MONO % 6 % (0-9); NEUT # 17.5 x10^3uL (1.8-7.7); NEUT % 91 % (31-73); PLATELET COUNT 187 x10^3/uL (140-400); RED BLOOD COUNT 5.29 x10^6/uL (4.30-5.70); WHITE BLOOD COUNT 19.1 x10^3/uL (4.0-11.0)
[2021-01-14 06:58] LABS: CALCIUM 10.6 mg/dL (8.5-10.1); CREATININE 1.9 mg/dL (0.7-1.3); GFR 43.7; POTASSIUM 3.9 mmol/L (3.5-5.1)
[2021-01-14] MEDS: IV RINGERS SOLUTION,LACTATED 1,000 ML IV SCH ×2 (07:02→11:08)
[2021-01-14 07:11] LABS: ALBUMIN 3.8 g/dL (3.4-5.0); DIRECT BILIRUBIN 0.5 mg/dL (0.0-0.2); MAGNESIUM 1.4 mg/dL (1.8-2.4); TOTAL BILIRUBIN 1.5 mg/dL (0.2-1.0); TOTAL PROTEIN 7.5 g/dL (6.4-8.2)
[2021-01-14] MEDS ORDERED: PIPERACILLIN/TAZOBACTAM 4.5 GM in IV NORMAL SALINE 50ML 50 ML IV ONE (07:45)
[2021-01-14] MEDS ORDERED: IV NORMAL SALINE 1,000ML 1,000 ML IV ONE ×2 (07:45)
[2021-01-14] MEDS ORDERED: PIPERACILLIN/TAZOBACTAM 4.5 GM VIAL IV ONE (07:59)
[2021-01-14] MEDS ORDERED: IV NORMAL SALINE 50ML 50 ML ONE (07:59)
[2021-01-14] MEDS ORDERED: AZITHROMYCIN 500 MG in IV NORMAL SALINE 250ML 250 ML IV ONE (08:00)
[2021-01-14] MEDS ORDERED: MAGNESIUM SULFATE 2GM 50 ML IV ONE (08:00)
[2021-01-14] MEDS ORDERED: AZITHROMYCIN 500 MG VIAL. IV ONE (08:15)
[2021-01-14] MEDS ORDERED: IV NORMAL SALINE 250ML 250 ML ONE (08:15)
[2021-01-14] MEDS ORDERED: ONDANSETRON PF 4 MG/2 ML VIAL. ONE (08:40)
[2021-01-14] MEDS ORDERED: ONDANSETRON PF 4 MG/2 ML VIAL. IVP ONE (08:45)
[2021-01-14] MEDS ORDERED: TRAM50TA PO (09:13)
[2021-01-14] MEDS ORDERED: OMEP40CA45 PO (09:13)
[2021-01-14] MEDS ORDERED: traMADol 50 MG TABLET PO ONE (10:45)
[2021-01-14 12:00] VITALS: BP 126/76
[2021-01-14 12:35] LABS: % ATYL 1 % (0-0); % BANDS 18 % (0-9); % LYMPHS 3 % (24-48); % MONOS 2 % (0-10); % SEGS 76 % (35-66)
[2021-01-14 12:36] LABS: PLT ESTIMATE ADEQUATE (ADEQUATE)
[2021-01-14 12:39] LABS: BURR CELLS FEW; OVALOCYTES FEW
[2021-01-14] MEDS ORDERED: DEXTROSE 50% 25 GM / 50ML DISP.SYRIN. IV PRN (13:30)
[2021-01-14] MEDS ORDERED: ONDANSETRON PF 4 MG/2 ML VIAL. IVP PRN (14:00)
[2021-01-14] MEDS ORDERED: PANTOPRAZOLE IV 40 MG VIAL. IVP ONE (14:00)
--- NOTE | 2021-01-14 14:19 | PREOP HP ---
DATE OF SERVICE: 01/14/2021 HISTORY OF PRESENT ILLNESS: The patient is a 60-year-old -[place] male patient who came to the Emergency Room complaining of generalized weakness, shortness of breath. He usually goes to [facility] for all his care. However, he ended up in the Emergency Room of [facility] as he was feeling extremely weak. Apparently, all his symptoms have been going on for the last few days. He also complained of malaise and wheezing. The patient has significant medical history for end-stage renal disease with a renal transplant in 2010, coronary artery disease, status post bypass surgery in 2013. 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 He normally follows all his care at . He was on hemodialysis via fistula prior to his transplant. 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 The patient admits to be somewhat noncompliant with his immunosuppression drugs post-renal transplant. However, he denied any recent travel. The patient is normally somewhat hypertensive and he is chronically anemic. He did recently have a televisit with , he is no longer a smoker. He was extensively investigated in the Emergency Room and has had lab work as well as imaging studies. His lab work showed that his white cell count was high at 19,000, hemoglobin 13, hematocrit 42, MCV 80 and platelet count of 187,000. His chemistry showed that he has hyponatremia, impaired kidney function with creatinine of 1.9, hypercalcemia and elevated AST, ALT. His magnesium was low also at 1.4 and his lipase was high at 601, his prothrombin time, INR and aPTT were normal. His D-dimer was high at 1.93. He did have a chest x-ray, which showed normal lung volumes, no pulmonary masses or consolidation. The tracheobronchial tree and hilar structures are normal. No pleural effusion or pneumothorax. Stable cardiomediastinal silhouette and great vessels and impression is the patient has no acute cardiopulmonary process. The patient was admitted with severe sepsis, lactic acid was 3 and has marked leukocytosis of 19,000. He was also hypertensive when he arrived. Other medical problems include hypomagnesemia, hyponatremia. He had received 30 mL per kilogram of fluid and has received also Zosyn as well as azithromycin and continue the lactated Ringer's and started on insulin sliding scale. 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 In fact, he is blind in his left eye, neuropathy and nephropathy, hypertension, chronic pancreatitis, coronary artery disease, status post coronary artery bypass graft surgery. 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 PAST SURGICAL HISTORY: Significant for coronary artery bypass graft surgery and pancreatic kidney transplant. ALLERGIES: He has no known drug allergies. MEDICATIONS: He is currently on following medications: He is on orphenadrine citrate 100 mg twice a day, rivaroxaban 15 mg twice a day. He has also carvedilol 25 mg twice a day, aspirin 81 mg once a day, hydrocodone/APAP 5/325 half to one tablet every 6 hours, tramadol 50 mg every 6 hours, clonazepam 0.5 mg twice a day, pregabalin 75 mg twice a day, trazodone 50 mg at bedtime, prochlorperazine for Compazine 10 mg every 6 hours, ondansetron 8 mg every 8 hours, omeprazole 40 mg twice a day. He is also on Lidoderm patch 1 patch applied topically on for 12 hours and off for 12 hours, allopurinol 150 mg once a day, mycophenolate mofetil 500 mg twice a day and tacrolimus 5 mg capsule, he takes 1.5 mg p.o. b.i.d. REVIEW OF SYSTEMS: As per history of present illness. PHYSICAL EXAMINATION: GENERAL: When I examined on arrival to the Emergency Room, the patient looked somewhat pale, not jaundiced, cyanosed or thyromegaly. No jugular venous distension. No limb edema. VITAL SIGNS: His heart rate was 76, blood pressure was 96/53, temperature was 98.9, respiratory rate was 22 and oxygen saturation was 98% on room air. HEAD, EYES, EARS, NOSE AND THROAT: Showed normocephalic, atraumatic. NECK: Supple. HEART: Normal first and second heart sounds. No gallop, rub or murmur. CHEST: Clear to auscultation. No crepitation or rhonchi. ABDOMEN: Distended. Tenderness mostly in the epigastric area. There is no guarding or rigidity. No organomegaly. All hernial orifice intact. Bowel sounds normal. NEUROLOGIC: He was blind in his left eye, but otherwise all his cranial nerves are intact. EXTREMITIES: He moves extremities without difficulty. He apparently ambulates without assistance or assistive devices. LABORATORY DATA: His lab work on admission showed a white cell count of 19,100, hemoglobin 13.6, hematocrit 42, MCV 80 and platelet count of 187,000 with a manual differential showed 91% polymorphs, 2% lymphocytes and 6% monocytes. His serum sodium was low at 127, potassium 3.9, chloride 89, bicarbonate 26, anion gap of 12, BUN 15, creatinine 1.9, his baseline creatinine was 1.3. His estimated GFR was 43 mL per minute, his glucose 115, lactic acid was 3 millimoles per liter. Calcium was 10.6. Magnesium was 1.4. Total bilirubin is 1.5. AST and ALT elevated. Alkaline phosphatase was normal. CK was 716. Beta natriuretic peptide was 342. Total protein was 7.5, albumin was 3.8 and serum lipase was 601. His prothrombin time was 9.9, INR of 1, aPTT was 24, and D-dimer was 1.93. The patient was also swabbed for COVID-19, the result of which is still pending at the time of this dictation. ASSESSMENT AND PLAN: In summary, this is a 60-year-old -[place] male patient who came with shortness of breath. He also complained of abdominal pain, recurrent bouts of diarrhea that has been going on for almost 2 weeks now. His lab work showed that he has leukocytosis, impaired kidney function, hyponatremia, hypomagnesemia. He also has hypercalcemia, liver enzyme, and his serum lipase was high at 601. PLAN: My plan is to continue with IV fluid. Continue with pain management. I will arrange for him to have a CT scan of the abdomen and pelvis without contrast given his impaired kidney function and we will decide on further management accordingly. We need to check his urine and blood for culture and sensitivity and we will continue obviously on the IV antibiotic. SUMMER MILLER MD DR: TAYLOR/chucky JOB#: [id number] / [id number]
[2021-01-14 14:59] LABS: HEMATOCRIT 38.7 % (39.0-53.0); HEMOGLOBIN 12.3 g/dL (13.0-17.5); RED BLOOD COUNT 4.8 x10^6/uL (4.30-5.70); WHITE BLOOD COUNT 15.3 x10^3/uL (4.0-11.0)
[2021-01-14 15:07] LABS: BARBITURATES NEG (NEG); BENZODIAZEPINES NEG (NEG); CANNABINOIDS NEG (NEG); COCAINE NEG (NEG); METHADONE NEG (NEG); OPIATES NEG (NEG); PHENCYCLIDINE NEG (NEG)
[2021-01-14 15:08] LABS: CALCIUM 9.7 mg/dL (8.5-10.1); CREATININE 1.6 mg/dL (0.7-1.3); GFR 53.3; POTASSIUM 3.7 mmol/L (3.5-5.1)
[2021-01-14 15:10] LABS: AMPHETAMINE/METHAMPHETAMINE NEG (NEG)
[2021-01-14 15:11] LABS: BILIRUBIN,URINE MOD (NEG); CLARITY,URINE HAZY; COLOR,URINE AMBER; GLUCOSE,URINE NEG (NEG); NITRITE,URINE POS (NEG); UROBILINOGEN,URINE 0.2 mg/dL (0.2 mg/dL)
[2021-01-14 15:12] LABS: BACTERIA,URINE MOD /HPF (0-FEW); SQUAMOUS EPITHELIAL CELL,UR FEW /LPF; WBC,URINE >40 /HPF (0-4)
[2021-01-14 15:14] LABS: ALBUMIN 3.2 g/dL (3.4-5.0); ALBUMIN/GLOBULIN RATIO 0.9 (1.0-1.7); TOTAL PROTEIN 6.6 g/dL (6.4-8.2)
--- NOTE | 2021-01-14 15:16 | RAD ---
EXAM: Abdomen and pelvis CT without intravenous contrast. HISTORY: Abnormal liver enzyme laboratory values. Elevated lipase. TECHNIQUE: Computed tomographic images of the abdomen and pelvis were obtained without contrast. Mult iplanar reformatting was performed. *One or more of the following individualized dose reduction techniques were utilized for this examina tion: 1. Automated exposure control. 2. Adjustment of the mA and/or kV according to patient size. 3. Use of iterative reconstruction technique. COMPARISON: 09/02/2017. FINDINGS: Evaluation of the lower thorax demonstrates mild elevation of the left hemidiaphragm and le ft basilar compressive atelectasis. There are median sternotomy changes. There is hepatic steatosis. No focal hepatic lesion is seen. The gallbladder is unremarkable. There is a splenule adjacent to an otherwise unremarkable spleen. The adrenal glands are unremarkable. There is bilateral renal atrophy. There is a right pelvic transplant kidney.. There is no evidence of hydronephrosis involving the tra nsplant kidney. There is stable stranding within the surrounding perinephric fat. The greater than tw o-year course of stability favors changes due to prior fat necrosis. There are surrounding surgical c lips. There is minimal stranding surrounding the pancreatic head. The pancreas is relatively small. The cecum is positioned within the right upper quadrant and distended with air and fluid. The appendi x is separately prominent in caliber, measuring 8 mm. This is increased compared to the prior study. There is a stable 3.1 cm peripherally calcified lesion inferior to the right [place] kidney likely due to fat necrosis. There are few additional areas of calcification within the mesentery which are also likely due to fat necrosis. There are prominent air and filled fluid loops of small bowel throughout the mid abdomen. No convincing transition point is seen to suggest obstruction. There is distal colo seda diverticulosis. The bladder is empty. The aorta is normal in caliber. There is aortic and aortic branch vessel atherosclerosis. There is no suspicious osseous lesion. IMPRESSION: 1. Hepatic steatosis. 2. Minimal fatty stranding surrounding the pancreatic head. This is stable compared to the prior stud y and may be chronic. The possibility of pancreatitis is not excluded given the reported history. 3. Mildly dilated appendix. This is increased compared to the prior study. There is no significant chambers rrounding inflammatory stranding to suggest acute appendicitis. However, correlation with symptomatol ogy and correlation for possible leukocytosis is recommended. The appendix is positioned within the r ight upper quadrant. 4. Prominent air and fluid-filled cecum and loops of small bowel. This is nonspecific and can be seen with diarrhea. There is no convincing colitis or enteritis. 5. Colonic diverticulosis. 6. Right transplant kidney with surrounding fatty stranding likely due to fat necrosis. There are add itional areas of suspected fat necrosis within the right abdomen which are also stable in appearance. The manzanita kidneys are severely atrophic. Electronically signed by: Sarai Lindsey MD (01/14/2021 3:14 PM) [id number]
[2021-01-14] MEDS: chlorproMAZINE IM 50 MG/2 ML AMPUL IM PRN ×2 (15:38→21:13)
[2021-01-14] MEDS ORDERED: PIPERACILLIN/TAZOBACTAM 2.25 GM in IV NORMAL SALINE 50ML 50 ML IV SCH (16:00)
[2021-01-14 16:16] VITALS: BP 134/76
[2021-01-14] MEDS ORDERED: INSULIN LISPRO 300 UNITS/3 ML VIAL. SQ SCH (17:00)
[2021-01-14 19:05] VITALS: BP 106/60
[2021-01-15] MEDS ORDERED: PANTOPRAZOLE IV 40 MG VIAL. IVP SCH (07:30)
== END 2021-01-14 21:20 | disposition short-term general hospital (02) | DRG 871 ==
LOC: ER 05:10 → 1 SOUTH 10:05
PROVIDERS: ADMIT Internal Medicine; ATTEND Internal Medicine
DX: A41.9 Sepsis, unspecified organism (principal); N18.6 End stage renal disease; E87.1 Hypo-osmolality and hyponatremia; I12.0 Hypertensive chronic kidney disease with stage 5 chronic kidney disease or end stage renal disease; K86.1 Other chronic pancreatitis; Z94.0 Kidney transplant status; D64.9 Anemia, unspecified; E11.22 Type 2 diabetes mellitus with diabetic chronic kidney disease; E11.319 Type 2 diabetes mellitus with unspecified diabetic retinopathy without macular edema; E78.00 Pure hypercholesterolemia, unspecified; E83.42 Hypomagnesemia; E83.52 Hypercalcemia; H54.62 Unqualified visual loss, left eye, normal vision right eye; I25.10 Atherosclerotic heart disease of native coronary artery without angina pectoris; R65.20 Severe sepsis without septic shock; Z20.822 Contact with and (suspected) exposure to COVID-19; F32.9 Major depressive disorder, single episode, unspecified; E11.40 Type 2 diabetes mellitus with diabetic neuropathy, unspecified; K21.9 Gastro-esophageal reflux disease without esophagitis; Z87.891 Personal history of nicotine dependence; Z91.19 Patient's noncompliance with other medical treatment and regimen; Z95.1 Presence of aortocoronary bypass graft
CPT/HCPCS: 36415; 71045; 74176; 80048; 80053; 80076; 80307; 81001; 82550; 82947; 83605; 83690; 83735; 83880; 84145; 84443; 84484; 85007; 85025; 85027; 85379; 85610; 85730; 87040; 87077; 87086; 87205; 87426; 93005; 94640; 96365; 96367; C9113; J0456; J1815; J2405; J2543; J3010; J3230; J3475; J7050; J7120; U0003; 94664; 99285-25; J7030

== ENCOUNTER → 2021-04-21 | Outpatient (CLI) | payer MEDICARE ==
[~2021-04-21] MED LIST changes: -OMEP40CA45 PO; +OMEP40CA7 PO; +TRAM50TA PO
[2021-04-21 14:24] LABS: BASO # 0.1 x10^3/uL (0.0-0.2); BASO % 1 % (0-3); EOS # 0.5 x10^3/uL (0.0-0.7); EOS % 10 % (0-3); HEMATOCRIT 44.6 % (39.0-53.0); HEMOGLOBIN 14.8 g/dL (13.0-17.5); LYMPH % 20 % (24-48); MEAN CORPUSCULAR HEMOGLOBIN 29 pg (25-35); MEAN CORPUSCULAR HGB CONC 33 g/dL (31-37); MEAN CORPUSCULAR VOLUME 87 fL (79-100); MONO # 0.6 x10^3/uL (0.0-1.1); MONO % 13 % (0-9); NEUT # 2.7 x10^3uL (1.8-7.7); NEUT % 56 % (31-73); PLATELET COUNT 203 x10^3/uL (140-400); RED BLOOD COUNT 5.16 x10^6/uL (4.30-5.70); RED CELL DISTRIBUTION WIDTH 14.7 % (11.5-14.5); WHITE BLOOD COUNT 4.9 x10^3/uL (4.0-11.0)
[2021-04-21 14:28] LABS: BILIRUBIN,URINE NEG (NEG); CLARITY,URINE CLEAR; COLOR,URINE YELLOW; GLUCOSE,URINE NEG (NEG)
[2021-04-21 14:29] LABS: NITRITE,URINE NEG (NEG); UROBILINOGEN,URINE 0.2 mg/dL (0.2 mg/dL)
[2021-04-21 14:38] LABS: BACTERIA,URINE FEW /HPF (0-FEW); HYALINE CASTS, URINE OCC /HPF; RBC,URINE OCC /HPF (0-2); SQUAMOUS EPITHELIAL CELL,UR OCC /LPF
[2021-04-21 14:41] LABS: ALBUMIN 4.2 g/dL (3.4-5.0); ALBUMIN/GLOBULIN RATIO 1.1 (1.0-1.7); CALCIUM 9.4 mg/dL (8.5-10.1); CREATININE 1.1 mg/dL (0.7-1.3); GFR 81.8; MAGNESIUM 1.7 mg/dL (1.8-2.4); POTASSIUM 4.6 mmol/L (3.5-5.1); TOTAL BILIRUBIN 0.8 mg/dL (0.2-1.0); TOTAL PROTEIN 7.9 g/dL (6.4-8.2); URIC ACID 5.2 mg/dL (3.5-7.2)
[2021-04-22 20:08] LABS: CREATININE,RANDOM URINE 135.3 mg/dL (Not Establ.)
== END ==
LOC: LAB 13:44
PROVIDERS: ATTEND Internal Medicine
DX: Z51.81 Encounter for therapeutic drug level monitoring (principal); Z94.0 Kidney transplant status; Z94.83 Pancreas transplant status; Z79.899 Other long term (current) drug therapy
CPT/HCPCS: 80053; 80197; 81001; 82150; 82570; 83690; 83735; 84100; 84156; 84550; 85025

== ENCOUNTER → 2021-08-06 | Outpatient (CLI) | payer MEDICARE ==
[2021-08-06 11:28] LABS: BASO % 1 % (0-3); EOS # 0.3 x10^3/uL (0.0-0.7); EOS % 8 % (0-3); HEMATOCRIT 45.5 % (39.0-53.0); LYMPH # 1.1 x10^3/uL (1.0-4.8); LYMPH % 24 % (24-48); MEAN CORPUSCULAR HEMOGLOBIN 29 pg (25-35); MEAN CORPUSCULAR HGB CONC 33 g/dL (31-37); MEAN CORPUSCULAR VOLUME 89 fL (79-100); MONO # 0.5 x10^3/uL (0.0-1.1); MONO % 12 % (0-9); NEUT # 2.6 x10^3uL (1.8-7.7); NEUT % 57 % (31-73); PLATELET COUNT 225 x10^3/uL (140-400); RED BLOOD COUNT 5.13 x10^6/uL (4.30-5.70); RED CELL DISTRIBUTION WIDTH 13.7 % (11.5-14.5); WHITE BLOOD COUNT 4.6 x10^3/uL (4.0-11.0)
[2021-08-06 11:33] LABS: ALBUMIN 4.1 g/dL (3.4-5.0); ALBUMIN/GLOBULIN RATIO 1.1 (1.0-1.7); GFR 91.3; MAGNESIUM 1.6 mg/dL (1.8-2.4); PHOSPHORUS 3.4 mg/dL (2.6-4.7); POTASSIUM 4.3 mmol/L (3.5-5.1); TOTAL BILIRUBIN 0.4 mg/dL (0.2-1.0); TOTAL PROTEIN 7.9 g/dL (6.4-8.2); URIC ACID 5.6 mg/dL (3.5-7.2)
[2021-08-06 12:36] LABS: BACTERIA,URINE 0 /HPF (0-FEW); BILIRUBIN,URINE NEG (NEG); CLARITY,URINE CLEAR; COLOR,URINE YELLOW; GLUCOSE,URINE NEG (NEG); NITRITE,URINE NEG (NEG); RBC,URINE OCC /HPF (0-2); SQUAMOUS EPITHELIAL CELL,UR FEW /LPF; UROBILINOGEN,URINE 0.2 mg/dL (0.2 mg/dL)
[2021-08-07 14:48] LABS: CREATININE,RANDOM URINE 98.2 mg/dL (Not Establ.)
== END ==
LOC: LAB 09:44
PROVIDERS: ATTEND Internal Medicine
DX: Z51.81 Encounter for therapeutic drug level monitoring (principal); Z94.83 Pancreas transplant status; Z79.899 Other long term (current) drug therapy; Z94.0 Kidney transplant status
CPT/HCPCS: 36415; 80053; 80197; 81001; 82150; 82570; 83690; 83735; 84100; 84156; 84550; 85025; 87086

== ENCOUNTER 2021-09-08 07:20 | Emergency (ER) | payer MEDICARE ==
[~2021-09-08] VITALS: Ht 172.7 cm; Wt 90.0 kg
--- NOTE | 2021-09-08 08:02 | PHYS DOC ---
Past History Past Medical History: CAD, Depression, Diabetes, DVT, Fibromyalgia, GERD, High Cholesterol, Immunosuppression, Pancreatitis, Renal Failure Past Surgical History: Coronary Bypass Surgery, Other Additional Past Surgical Histo: renal transplant, pancreatic transplant Smoking: Quit Greater Than 1 Year Alcohol Use: None Drug Use: None General Adult EDM: Chief Complaint: LOWER EXT PAIN HPI: HPI: Patient is a 61-year-old male coming in for 2 days of left ankle pain and swelling. Patient states he fell and twisted his ankle 2 days ago is unsure if it was internally or externally rotated. Denies any other injuries. Was unable to bear weight yesterday, today is able to bear weight but has difficulty with walking. Denies any prior surgeries to the ankle, has had remote ankle injuries in the past. Review of Systems: Review of Systems: All other systems within normal limits except for as noted in the HPI Allergies: Allergies: Allergies Coded Allergies Type Severity Reaction Last Updated Verified No Known Drug Allergies 08/30/20 No Physical Exam: PE: Constitutional: Well developed, well nourished, no acute distress, non-toxic appearance. [] HENT: Normocephalic, atraumatic, bilateral external ears normal, nose normal. [] Eyes: PERRLA, conjunctiva normal, no discharge. [] Neck: No rigidity, supple, no stridor. [] Cardiovascular: Regular rate and rhythm, brisk cap refill [] Lungs & Thorax: Non labored symmetric respirations, no tachypnea or respiratory distress [] Abdomen: Soft, nondistended. Skin: Warm, dry, no erythema, no rash. [] Back: Unremarkable Extremities: No deformities,, swelling of left ankle, tenderness over lateral malleolus, tenderness with tib-fib squeeze, no sensory or motor deficits distal to injury Neurologic: Alert and oriented X 3, no focal deficits noted. [] Psychologic: Affect normal, judgement normal, mood normal. [] Current Patient Data: Vital Signs: Vital Signs Date Time Temp Pulse Resp B/P (MAP) Pulse Ox O2 Delivery O2 Flow Rate FiO2 09/08/21 07:30 98.0 94 18 136/82 (100) 96 Room Air EKG: EKG: [] Radiology/Procedures: Radiology/Procedures: [address] [address] IMAGING REPORT Signed PATIENT: DANNA ZHONGOUNT: [id number] : 1960 LOCATION: ER AGE: 61 SEX: M EXAM STATUS: REG ER ORD. PHYSICIAN: FRANCISCO MACIEL MD REASON: INJURY PROCEDURE: ANKLE LEFT 3V XR EXAM OF ANKLE_LEFT 3V Clinical indications: Reason: INJURY /pain. Findings: There is cortical disruption of the lateral distal left fibular epiphysis consistent with a nondisplaced fracture. The mortise ankle joint is intact. No lytic process is seen. IMPRESSION: Nondisplaced distal left fibular fracture. Electronically signed by: Radha Marcos MD (09/08/2021 8:20 AM) [id number] DICTATED AND SIGNED BY: RADHA MARCOS MD DATE: 09/08/21817 CC: FRANCISCO MACIEL MD; SATURNINO MAXWELL ~MTH0 0 [] Heart Score: C/O Chest Pain: No Risk Factors: Risk Factors: DM, Current or recent (<one month) smoker, HTN, HLP, family history of CAD, obesity. Risk Scores: Score 0 - 3: 2.5% MACE over next 6 weeks - Discharge Home Score 4 - 6: 20.3% MACE over next 6 weeks - Admit for Clinical Observation Score 7 - 10: 72.7% MACE over next 6 weeks - Early Invasive Strategies Course & Med Decision Making: Course & Med Decision Making Pertinent Labs and Imaging studies reviewed. (See chart for details) [] Ronnell Disclaimer: Dragsharon Disclaimer: This electronic medical record was generated, in whole or in part, using a voice recognition dictation system. Departure Departure: Impression: Primary Impression: Closed left ankle fracture Disposition: HOME / SELF CARE / HOMELESS Condition: STABLE Referrals: SATURNINO MAXWELL (PCP) Patient Instructions: RICE - Routine Care for Injuries Additional Instructions: Follow-up with [facility] [address], [place] [address] Scripts Hydrocodone Bit/Acetaminophen (HYDROCODONE-APAP 5-325 ) 1 Each Tablet 1 TAB PO PRN Q6HRS PRN for PAIN for 3 Days, #15 TAB 0 Refills Prov: FRANCISCO MACIEL MD 09/08/21 FRANCISCO MACIEL MD Sep 08, 2021 08:02
--- NOTE | 2021-09-08 08:22 | RAD ---
XR EXAM OF ANKLE_LEFT 3V Clinical indications: Reason: INJURY /pain. Findings: There is cortical disruption of the lateral distal left fibular epiphysis consistent with a nondisplaced fracture. The mortise ankle joint is intact. No lytic process is seen. IMPRESSION: Nondisplaced distal left fibular fracture. Electronically signed by: Yuriy Marcos MD (09/08/2021 8:20 AM) [id number]
[2021-09-08] MEDS ORDERED: HYDR-2155 PO (08:54)
== END 2021-09-08 09:29 | disposition home or self-care (01) ==
LOC: ER 07:20
DX: S82.892A Other fracture of left lower leg, initial encounter for closed fracture (principal); E11.9 Type 2 diabetes mellitus without complications; K21.9 Gastro-esophageal reflux disease without esophagitis; Z87.891 Personal history of nicotine dependence; X50.1XXA Overexertion from prolonged static or awkward postures, initial encounter; Y93.89 Activity, other specified; Y92.89 Other specified places as the place of occurrence of the external cause; Y99.8 Other external cause status
CPT/HCPCS: 73610; 99283-25